=== PATIENT | male | born 1970 | race Caucasian/White ===

== ENCOUNTER → 2019-08-22 18:06 | Outpatient (CLI) | payer MEDICAID, SELFPAY ==
[2019-08-22 20:14] LABS: Amphetamine/Metha Screen,Urine Negative ng/mL (<1000); Barbiturates Screen,Urine Negative ng/mL (<200); Benzodiazepines Screen,Urine Negative ng/mL (<200); Cannabinoid Screen,Urine Negative ng/mL (<50); Cocaine Screen,Urine Negative ng/mL (<300); Methadone Screen,Urine Negative ng/mL (<300); Opiate Screen,Urine Negative ng/mL (<300); Phencyclidine Screen,Urine Negative ng/mL (<25)
== END ==
PROVIDERS: Visit Provider Nurse Practitioner Family
DX: R91.8 Other nonspecific abnormal finding of lung field (principal)
CPT/HCPCS: 80305

== ENCOUNTER 2022-05-14 06:37 | Emergency (ER) | payer MEDICAID, SELFPAY ==
--- NOTE | 2022-05-14 06:30 | ECG_ITS ---
APPROVED REPORT Exam: Resting ECG HR:76 bpm ECG Measurements Heart Rate 76 AXES MD 159 P 65 QRSd 96 QRS 44 QT 373 T 65 QTc 403 Conclusion SINUS RHYTHM NORMAL ECG UNCONFIRMED REPORT Electronically signed by : Jovi Serrano MD 05/14/2022 14:53:18
[2022-05-14 06:33] VITALS: BP 110/71; PULSE 80; RESP 17; TEMP 37.3; O2SAT 98; BMI 25.0
--- NOTE | 2022-05-14 06:43 | XR_ITS ---
FINAL REPORT CLINICAL HISTORY: chest pain, hx of TN with stents FINDINGS: PA and lateral views of the chest were obtained. There is no prior exam for comparison. The cardiac and mediastinal silhouettes are within normal limits. Emphysematous changes are present. Linear opacities in the right middle lobe and lower lobe favor atelectasis or scarring. There is blunting of the right costophrenic angle favored represent scarring. There is no pleural effusion or pneumothorax. No acute osseous abnormality is identified. IMPRESSION: Right middle and lower lobe opacities favoring atelectasis or scarring. Reviewed, Interpreted and Dictated by Nessa Denise MD Transcribed by Duane Stock Authenticated and [facility]
--- NOTE | 2022-05-14 06:45 | PC.NURSE ---
at BS speaking with pt
--- NOTE | 2022-05-14 06:45 | PC.NURSE ---
PT RECEIVED ASA 324 MG AND NITRO SL X 2 THAT RELIEVED HIS CHEST PAIN PRIOR TO ARRIVAL PER EMS.
[2022-05-14 06:50] LABS: Coronavirus 19, PCR Not Detected (NotDetected); Influenza A, PCR Not Detected (NotDetected); Influenza B, PCR Not Detected (NotDetected)
[2022-05-14 06:51] LABS: Basophils # 0.1 K/mm3 (0-0.2); Basophils % 1.2 % (0.1-2.0); Eosinophils # 0.1 K/mm3 (0.0-0.4); Eosinophils % 1.8 % (0.1-12.0); Lymphocytes # 0.8 K/mm3 (0.7-4.5); Mean Corpuscular HGB Conc 33.3 g/dL (31.8-35.4); Mean Corpuscular Hemoglobin 30.8 pg (27.0-31.2); Mean Corpuscular Volume 92.4 fl (80-94); Mean Platelet Volume 8.7 fl (7.4-10.4); Monocytes # 0.2 K/mm3 (0.1-1.0); Monocytes % 4.7 % (1.7-9.3); Neutrophils # 3.6 K/mm3 (1.8-7.8); Neutrophils % 75.4 % (37.0-80.0); Platelet Count 88 K/mm3 (142-424); Red Blood Count 4.22 M/mm3 (4.60-6.20); Red Cell Distribution Width 13.8 % (11.5-17.5); White Blood Count 4.8 K/mm3 (4.8-10.8)
--- NOTE | 2022-05-14 06:53 | HMH.EDGENADL ---
ED Disposition Clinical Impression: Palpitations, Hypomagnesemia, Cervical radicular pain Disposition: Home, Self-Care Condition on Discharge: Good Instructions: DI for Atypical Chest Pain, DI for Cervical Radiculopathy, DI for Palpitations Additional Instructions: You were evaluated in the emergency department today for palpitations. Please call your billing and accounting staff assistant and your primary care provider today and notify them that you are seen here for this. It is important to follow-up closely with them. Make sure you stay orally hydrated at home is much as possible. 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 Prescriptions: Naproxen Sodium [Naproxen ER 500mg Tab] 500 mg PO DAILY 5 Days #20 tab Transmission Status: Pending to [facility] Referrals: Provider,Referral, [Referring] - - Critical Care Critical Care Time: No Attestation: On 05/14/22, the high probability of a clinically significant, sudden or life threatening deterioration of the following system(s) required my full and direct attention, intervention and personal management. The time I documented below is in addition to time spent performing reported procedures but includes the following listed in this critical care notation. Medical Decision Making - Orion Inquiry Pt receiving controlled substance: No Vital Signs: 05/14/22 06:33 05/14/22 07:36 Temperature 99.1 F Temperature Source Oral Pulse Rate 63 Pulse Rate [Left Radial] 80 Respiratory Rate 17 14 Blood Pressure 109/60 L Blood Pressure [Right Arm] 110/71 Blood Pressure Mean 71 Blood Pressure Mean [Right Arm] 84 Blood Pressure Source [Right Arm] Automatic Cuff Blood Pressure Position [Right Arm] Standing 02 Sat by Pulse Oximetry 98 97 Oxygen Delivery Method Room Air - Lab Data Lab Results 05/14/22 06:36: WBC 4.8, RBC 4.22 L, Hgb 13.0 L, Hct 39.0 L, MCV 92.4, MCH 30.8, MCHC 33.3, RDW 13.8, Plt Count 88 L, MPV 8.7, Neut % (Auto) 75.4, Lymph % (Auto) 17.0, Burke % (Auto) 4.7, Eos % (Auto) 1.8, Baso % (Auto) 1.2, Neut # (Auto) 3.6, Lymph # (Auto) 0.8, Burke # (Auto) 0.2, Eos # (Auto) 0.1, Baso # (Auto) 0.1 05/14/22 06:36: Sodium 137, Potassium 3.5, Chloride 103, Carbon Dioxide 28, Anion Gap 9.5, BUN 8 L, Creatinine 0.70, Estimated Creat Clear 150, Estimated GFR 119, Est GFR ( Amer) 144, Glucose 162 H, Calcium 8.3 L, Total Bilirubin 0.7, Direct Bilirubin 0.5 H, Conjugated Bilirubin 0.0, Indirect Bilirubin 0.2, Unconjugated Bilirubin 0.3, AST 79 H, ALT 67, Alkaline Phosphatase 164 H, Troponin I < 0.01, Total Protein 6.8, Albumin 3.6 05/14/22 06:36: SARS-CoV-2 (PCR) Not detected, Influenza A Untype (PCR) Not detected, Influenza Type B (PCR) Not detected 05/14/22 06:36: Magnesium 1.4 L Result diagrams: 05/14/22 06:36 05/14/22 06:36 Orders (Tests/Meds): ED MEDICATIONS Generic Name Dose Route Start Last Admin Trade Name Freq PRN Reason Stop Dose Admin Lactated Ringer's 1,000 mls @ 999 mls/hr 05/14/22 07:00 05/14/22 06:54 Lactated Ringer's 1000 Ml Bag IV 05/14/22 08:00 999 mls/hr .Q1H1M ANH Administration Magnesium Sulfate 2 gm in 50 mls @ 50 mls/hr 05/14/22 07:15 05/14/22 07:21 Magnesium Sulfate 2gm/50ml Premix IV 05/14/22 08:14 50 mls/hr ONCE ONE Administration Naproxen 500 mg 05/14/22 09:00 Naproxen 500mg Tablet PO 06/13/22 08:59 BIDWMEAL ANH Discontinued Medications Generic Name Dose Route Start Last Admin Trade Name Freq PRN Reason Stop Dose Admin Gabapentin 300 mg 05/14/22 07:38 Gabapentin 300mg Capsule PO 05/14/22 07:39 ONCE ONE Nitroglycerin 1 gm 05/14/22 06:45 05/14/22 06:48 Nitroglycerin 1 Gm Ointment TD 05/14/22 06:46 1 gm ONCE ONE Administration Ondansetron HCl 4 mg 05/14/22 06:44 05/14/22 06:47 Ondansetron 4mg/2ml Vial IV 05/14/22 06:45 4 mg ONCE ONE Administration ORDERS Category Date Time Status Tropo
[2022-05-14 06:59] LABS: Alanine Aminotransferase 67 U/L (12-78); Albumin Level 3.6 g/dl (3.5-5.0); Alkaline Phosphatase 164 U/L (38-126); Anion Gap 9.5 mEq/L (5-15); Aspartate Amino Transferase 79 U/L (17-59); Bilirubin,Direct 0.5 mg/dl (0.0-0.4); Bilirubin,Indirect 0.2 mg/dL (0.0-0.9); Bilirubin,Total 0.7 mg/dl (0.2-1.3); Bilirubin,Unconjugated 0.3 mg/dL (0.0-1.1); Blood Urea Nitrogen 8 mg/dl (9-20); Calcium 8.3 mg/dl (8.4-10.2); Carbon Dioxide 28 mmol/L (22.0-30.0); Chloride 103 mmol/L (98-107); Creatinine Clearance Estimated 150 mL/min (50-200); Estimated Glomerular Filt Rate 119 ml/min (>60); GFR (African American) 144 ML/MIN (>60); Glucose 162 mg/dl (74-100); Potassium 3.5 mmoL/L (3.5-5.1); Sodium 137 mmol/L (136-145); Total Protein,Serum 6.8 g/dl (6.3-8.2)
[2022-05-14 07:00] LABS: Magnesium 1.4 mg/dl (1.6-2.3)
--- NOTE | 2022-05-14 07:05 | PC.NURSE ---
Pt gone to RAD
--- NOTE | 2022-05-14 07:07 | PC.NURSE ---
Pt back from RAD
[2022-05-14 07:14] LABS: Troponin I < 0.01 ng/ml (0.00-0.034)
[2022-05-14 07:36] VITALS: BP 109/60; PULSE 63; RESP 14; O2SAT 97
--- NOTE | 2022-05-14 07:45 | PC.NURSE ---
PT CONTINUES TO C/O RT ARM PAIN
[2022-05-14 08:06] VITALS: BP 103/60; PULSE 65; RESP 13; O2SAT 97
--- NOTE | 2022-05-14 08:07 | PC.NURSE ---
Pt trying to call sister for a ride home.
--- NOTE | 2022-05-14 08:26 | PC.NURSE ---
Pt states that he was able to get ahold of his sister. Waiting for her arrival so that pt can be D/C'd. Pt resting at this time.
--- NOTE | 2022-05-14 08:28 | PC.NURSE ---
Patient's sister called to notify us and patient that one of the patient's brothers is coming to get him.
[2022-05-14 08:36] VITALS: BP 103/66; PULSE 64; RESP 15; O2SAT 99
--- NOTE | 2022-05-14 08:59 | PC.NURSE ---
pt c/o rt side neck and rt arm pain
--- NOTE | 2022-05-14 09:05 | PC.NURSE ---
pt waiting brother to pick him up for discharge
[2022-05-14 09:06] VITALS: BP 117/68; PULSE 60; RESP 16; O2SAT 99
[2022-05-14 09:30] VITALS: BP 117/68; PULSE 66; PULSE 78; RESP 16; RESP 20; TEMP 36.6; TEMP 36.9; O2SAT 98; O2SAT 99
== END 2022-05-14 09:32 | disposition home or self-care (01) ==
PROVIDERS: Emergency Provider Emergency Medicine; PCP Nurse Practitioner Family
DX: M54.12 Radiculopathy, cervical region (principal); R10.11 Right upper quadrant pain; R00.2 Palpitations; R25.2 Cramp and spasm; E83.42 Hypomagnesemia; Z20.822 Contact with and (suspected) exposure to COVID-19; I10 Essential (primary) hypertension; I11.0 Hypertensive heart disease with heart failure; I25.10 Atherosclerotic heart disease of native coronary artery without angina pectoris; I49.9 Cardiac arrhythmia, unspecified; J44.9 Chronic obstructive pulmonary disease, unspecified; F17.210 Nicotine dependence, cigarettes, uncomplicated; Z79.02 Long term (current) use of antithrombotics/antiplatelets; Z79.51 Long term (current) use of inhaled steroids; Z79.82 Long term (current) use of aspirin; Z79.899 Other long term (current) drug therapy; Z95.5 Presence of coronary angioplasty implant and graft; Z83.3 Family history of diabetes mellitus; Z80.9 Family history of malignant neoplasm, unspecified
CPT/HCPCS: 71046; 80048; 80076; 83735; 84484; 85025; 93005; 96361; 96374; 96375; 96376; 99285; C9803; J2405; J3475; U0003; U0005

== ENCOUNTER 2024-11-23 17:10 | Emergency (ER) | payer MEDICAID, SELFPAY ==
--- NOTE | 2024-11-23 18:09 | XR_ITS ---
PROCEDURE INFORMATION: Exam: XR Chest Exam date and time: 11/23/2024 6:33 PM Age: 54 years old Clinical indication: Shortness of breath TECHNIQUE: Imaging protocol: Radiologic exam of the chest. Views: 2 views. COMPARISON: CR XR CHEST 2V 05/14/2022 6:55 AM FINDINGS: Lungs: Mild to moderate increased interstitial markings within the lower lung conroy probably representing pulmonary edema. Interstitial pneumonitis felt less likely. Pleural spaces: Small left pleural effusion. Heart/Mediastinum: Unremarkable. No cardiomegaly. Bones/joints: Unremarkable. IMPRESSION: Mild to moderate increased interstitial markings within the lower lung conroy probably representing pulmonary edema. Interstitial pneumonitis felt less likely.
[2024-11-23 18:10] VITALS: BP 130/76; PULSE 72; RESP 19; TEMP 36.8; O2SAT 98; BMI 32.3
[2024-11-23 18:18] LABS: Coronavirus 19, PCR Not Detected (NotDetected); Human Rhinovirus Not Detected (NotDetected); Influenza B, PCR Not Detected (NotDetected); Respiratory Syncytial Virus Not Detected (NotDetected)
--- NOTE | 2024-11-23 18:20 | EXP.UTC ---
Discharge Plan Disposition Patient Disposition: Home, Self-Care Condition: Good Prescriptions Prescriptions: New oseltamivir [Tamiflu] 75 mg capsule 75 mg PO BID 5 Days Qty: 10 0RF No Action aspirin 81 mg tablet,chewable 1 tab PO clopidogrel 75 mg tablet 75 mg PO atorvastatin 40 mg tablet 40 mg PO Anoro Ellipta 62.5-25 mcg/actuation blister with device 1 inh INHALATION DAILY Qty: 60 2RF albuterol sulfate [Ventolin HFA] 90 mcg/actuation HFA aerosol inhaler 1 puff INHALATION Q6H Qty: 6.7 0RF Rx Instructions: administer with spacer metoprolol succinate 25 mg tablet extended release 24 hr 12.5 mg PO lisinopril 20 mg tablet 20 mg PO DAILY Qty: 90 0RF escitalopram oxalate [Lexapro] 10 mg tablet 10 mg PO QDAY Qty: 14 0RF naproxen sodium 500 MG tablet, ER multiphase 24 hr 500 mg PO DAILY 5 Days Qty: 20 0RF Referrals Follow up/Referrals: Giovanny Escobar APRN [Primary Care Provider] - See instructions Ariel Cortes DO [Staff Physician] - See instructions Activity Restrictions/Add. Instructions Additional Instructions/Restrictions: Take tylenol for pain or fever. Continue the medications that were prescribed at [place], Take the tamiflu as directed that we prescribed here. Continue your lasix and your other medications that you are already prescribed. Follow up with your regular doctor. GO TO THE ER FOR ANY WORSENING SYMPTOMS Clinical Impressions Clinical Impression: Influenza A, At risk for fluid volume overload Instructions Patient Instructions: DI for Influenza -- Adult, Oseltamivir Print Language Print Language: Welsh Discharge ED Provider: Mikael Porter [facility] [place] [place] General Stated complaint: soa, wheezing, cough Mode of Arrival: Ambulatory Source of Information: Patient Limitations: No Limitations Time Seen by Provider: 11/23/24 18:19 Description of Symptoms (Recalled from Triage Doc. by RN): Reports coughing, shortness of breath and wheezing. HEENT Symptoms (Recalled from RN notes): Yes Resp Symptoms (Recalled from RN notes): Yes Skin Symptoms (Recalled from RN notes): No MS Symptoms (Recalled from RN notes): No Functional Status (Recalled from RN notes): wnl History of Present Illness Provider Complaint: He states that since yesterday he has had fever/chills/body aches/malaise. He has been exposed to influenza A. He went to [facility] ER last night and he states that he tested negative for influenza and covid-19. Related Data Home Medications ?Medication ?Instructions ?Recorded ?Confirmed aspirin 81 mg chewable tablet 1 tab PO 07/03/20 07/23/20 atorvastatin 40 mg tablet 40 mg PO 07/03/20 07/23/20 clopidogrel 75 mg tablet 75 mg PO 07/03/20 07/23/20 metoprolol succinate 25 mg 12.5 mg PO 07/23/20 07/23/20 tablet,extended release 24 hr Previous Rx's ?Medication ?Instructions ?Recorded lisinopril 20 mg tablet 20 mg PO DAILY #90 tabs 01/09/20 albuterol sulfate 90 mcg/actuation 1 puff inhalation Q6H #6.7 grams 07/03/20 aerosol inhaler (Ventolin HFA) umeclidinium 62.5 mcg-vilanterol 1 inh inhalation DAILY #60 ea 07/03/20 25 mcg/actuation powdr for inhalation (Anoro Ellipta) escitalopram oxalate 10 mg tablet 10 mg PO QDAY #14 tabs 07/24/20 (Lexapro) naproxen sodium 500 mg 500 mg PO DAILY 5 days #20 tabs 05/14/22 tablet,extended release 24 hr mphase oseltamivir 75 mg capsule (Tamiflu) 75 mg PO BID 5 days #10 caps 11/23/24 Allergies Allergy/AdvReac Type Severity Reaction Status Date / Time No Known Allergies Allergy Verified 07/23/20 14:21 Worker's Comp Is this a Worker's Comp case?: [facility] Disclaimer: The information contained in this section may have been updated after the patient was seen, as this information can be updated by other users. Social History Smoking Status: Current some day smoker tobacco type: cigarettes packs per day: 1 alcohol intake: never substance use type: denies use current occupational status: unemployed Travel in the last 8 weeks: None Have you lived/traveled outside [place] in past 30 days?: No Contact w/someone who lives/traveled outside US past 30 days?: No Exposure to someone with infectious disease in past 14 days?: No Do you have a fever (greater than 100.4 F or 38 C)?: No Have you tested positive for COVID-19: No Exposed to someone with COVID-19 in past 14 days?: No Do you have a sore throat?: No Do you have a cough?: Yes Do you have any weakness?: No Do you have any diarrhea?: No Are you experiencing any unusual bleeding?: No Do you have any muscle aches/pain?: No Do you have any abdominal pain?: No Are you experiencing loss of taste or smell?: No ROS Obtained: Yes All systems reviewed & no additional complaints except as documented Constitutional Constitutional: Reports chills and Reports fever(s) Eyes Eyes: Denies eye discharge ENT Ears, Nose, Mouth, and Throat: Reports as per HPI Cardiovascular Cardiovascular: Denies chest pain Respiratory Respiratory: Denies chest congestion and Reports cough Gastrointestinal Gastrointestingal: Reports nausea; Denies abdominal pain, constipation, cramping, diarrhea or vomiting Musculoskeletal Musculoskeletal: Denies arthralgias Integumentary/Breasts Skin/Breast: Denies rash Neurologic Neurologic: Denies paresthesias Physical Exam General General appearance: alert and in no apparent distress Head Head exam: atraumatic, normocephalic and normal inspection Eye Eye exam: Present normal appearance, PERRL and EOMI ENT ENT exam: Present mucous membranes moist and normal external ear exam Expanded ENT Exam TM/Canal exam: Bilateral TM: erythema and bulging Nose exam: Absent sinus tenderness Mouth exam: Present normal external inspection; Absent drooling Teeth exam: Present normal inspection Throat exam: Present tonsillar erythema, tonsillomegaly and tonsillar exudate Neck Neck exam: Present normal inspection, full ROM and trachea midline; Absent tenderness, meningismus or lymphadenopathy Chest Chest inspection: Present normal inspection and symmetric chest wall rise; Absent tenderness Respiratory Respiratory exam: Present normal lung sounds bilaterally; Absent respiratory distress, wheezes, stridor or accessory muscle use Cardiovascular Cardiovascular exam: Present regular rate and normal rhythm; Absent systolic murmur or diastolic murmur Abdominal Exam Abdominal exam: Present soft and normal bowel sounds; Absent distention, tenderness, guarding, rebound or rigidity Extremities Exam Extremities exam: Present normal inspection and normal capillary refill; Absent calf tenderness Back Exam Back exam: Present normal inspection and full ROM; Absent tenderness, CVA tenderness (R) or CVA tenderness (L) Neurological Exam Neurological exam: Present alert, oriented X3 and CN II-XII intact Psychiatric Psychiatric exam: Present normal affect and normal mood Skin Skin exam: Present warm, dry, intact and normal color Medical Decision Making Medical Records Medical records reviewed: No I reviewed the patient's medical records. Screening: Per USPSTF and CDC recommendations, given the prevalence of disease in our region, it is our hospital?s policy to screen for HIV and viral Hepatitis for all patients aged 18 and over and those with ongoing risk factors. Orion Inquiry Pt receiving controlled substance: No Vital Signs: 11/23/24 18:10 Temperature 98.3 F Temperature Source Oral Pulse Rate [Radial] 72 Respiratory Rate 19 Blood Pressure [Right Arm] 130/76 Blood Pressure Mean [Right Arm] 94 Blood Pressure Source [Right Arm] Automatic Cuff Blood Pressure Position [Right Arm] Sitting 02 Sat by Pulse Oximetry 98 Oxygen Delivery Method Room Air Lab Data Lab results reviewed: Yes I reviewed the patient's lab results. Orders (Tests/Meds): ORDERS Category Date Time Status CXR 2 view (NOT portable) [XR chest 2V] Stat Exams 11/23/24 18:09 Ordered Mini Respiratory Panel Stat Lab 11/23/24 18:12 Received
[2024-11-23] MEDS: IPRATROPIUM/ALBUTEROL 3 ML NEB IH (18:41)
[2024-11-23] MEDS: POTASSIUM CHLORIDE 20MEQ TAB 20 MEQ PO (19:21)
[2024-11-23] MEDS: FUROSEMIDE 40 MG TABLET PO (19:22)
[2024-11-23] MEDS: OSELTAMIVIR 75MG CAPSULE 75 MG PO (19:23)
[2024-11-23 19:46] VITALS: BP 130/76; PULSE 72; RESP 19; TEMP 36.8; O2SAT 98
[2024-11-24 01:09] LABS: Influenza A, PCR Detected (NotDetected)
== END 2024-11-23 19:48 | disposition home or self-care (01) ==
PROVIDERS: Emergency Provider Nurse Practitioner Family; PCP Nurse Practitioner Family
DX: J09.X2 Influenza due to identified novel influenza A virus with other respiratory manifestations (principal)
CPT/HCPCS: 71046; 87631; 99212; G0381; J7620

== ENCOUNTER 2024-11-24 09:35 | Inpatient (IN) | payer MEDICAID, SELFPAY ==
[2024-11-24] VITALS (17 sets, daily range): BP systolic 119–175; BP diastolic 67–91; PULSE 70–83; RESP 15–22; TEMP 36.7–37.6; O2SAT 92–96; BMI 29.8; BMI 29.9
--- NOTE | 2024-11-24 09:39 | ECG_ITS ---
APPROVED REPORT Exam: Resting ECG HR:73 bpm ECG Measurements Heart Rate 73 AXES IL 137 P 57 QRSd 106 QRS 20 QT 382 T 71 QTc 408 Conclusion SINUS RHYTHM POSSIBLE LATERAL MYOCARDIAL INFARCTION , OF INDETERMINATE AGE [30 ms Q WAVE IN I/aVL/V5/V6] ABNORMAL ECG Electronically signed by : RITO HIGH, 11/25/2024 08:12:23
--- NOTE | 2024-11-24 09:39 | XR_ITS ---
PROCEDURE INFORMATION: Exam: XR Chest Exam date and time: 11/24/2024 9:40 AM Age: 54 years old Clinical indication: Cough and shortness of breath; Additional info: Cough SOA TECHNIQUE: Imaging protocol: Radiologic exam of the chest. Views: 2 views. COMPARISON: CR XR CHEST 2V 11/23/2024 6:33 PM FINDINGS: Lungs: Heterogeneous opacities in the right mid and lower lungs have mildly progressed from the comparison. Pleural spaces: Small bilateral pleural effusions. No pneumothorax. Heart/Mediastinum: Cardiomediastinal silhouette is unchanged. Bones/joints: Unremarkable. IMPRESSION: 1. Small bilateral pleural effusions. 2. Heterogeneous opacities in the right mid and lower lungs have mildly progressed from the comparison. Subtle nodules peripheral left mid lung. These are concerning for infectious (including atypical) versus inflammatory etiology. Recommend imaging follow-up to resolution.
--- NOTE | 2024-11-24 09:40 | PC.NURSE ---
dr adorno at bedside
--- NOTE | 2024-11-24 09:45 | HMH.EDGENADL ---
Discharge Plan Disposition Patient Disposition: Admitted Prescriptions Prescriptions: No Action aspirin 81 mg tablet,chewable 1 tab PO DAILY clopidogrel 75 mg tablet 75 mg PO DAILY atorvastatin 40 mg tablet 40 mg PO DAILY Anoro Ellipta 62.5-25 mcg/actuation blister with device 1 inh INHALATION DAILY Qty: 60 2RF albuterol sulfate [Ventolin HFA] 90 mcg/actuation HFA aerosol inhaler 1 puff INHALATION Q6H Qty: 6.7 0RF Rx Instructions: administer with spacer metoprolol succinate 25 mg tablet extended release 24 hr 12.5 mg PO BID lisinopril 20 mg tablet 20 mg PO DAILY Qty: 90 0RF escitalopram oxalate [Lexapro] 10 mg tablet 10 mg PO QDAY Qty: 14 0RF naproxen sodium 500 MG tablet, ER multiphase 24 hr 500 mg PO DAILY 5 Days Qty: 20 0RF oseltamivir [Tamiflu] 75 mg capsule 75 mg PO BID 5 Days Qty: 10 0RF Referrals Follow up/Referrals: Evelyn Alcantara APRN [Primary Care Provider] - See instructions Clinical Impressions Clinical Impression: Influenza A, Pneumonia, Pleural effusion Print Language Print Language: Portuguese Discharge ED Provider: Serafin Nova General Adult HPI General Chief complaint: Shortness of Breath/Dyspnea Stated complaint: SOA Time Seen by Provider: 11/24/24 09:38 History of Present Illness HPI narrative: 54-year-old male with history of previous DC who is on daily diuretics, also has history of hypertension, presents to the ER with family for concerns of shortness of breath. Patient was seen in [email or web address] yesterday for the same complaints. I reviewed chest x-ray which commented on possible pulmonary edema versus pneumonitis. Review of [facility] [email or web address]] encounter demonstrates patient presented with fevers, chills, body aches, Generalized malaise. Family reports patient received Lasix, potassium, nebulizer treatment in the [facility] [[email or web address]] yesterday. Patient was prescribed Tamiflu after testing positive for influenza yesterday despite testing negative for influenza the day before at outside facility ER. Family reports they brought the patient back to the ER because they were instructed to bring him back if he was not feeling better. Patient still has the same symptoms as yesterday and is not feeling better so he came to the ER. Patient reportedly has been compliant with all medications at home. No new symptoms today. No documented fevers at home. Family reports everyone in the house has flu right now. Patient is on Tamiflu. No headache, dizziness, numbness, tingling, weakness, abdominal pain, vomiting, diarrhea, or other complaints. Related Data Home Medications ?Medication ?Instructions ?Recorded ?Confirmed aspirin 81 mg chewable tablet 81 mg PO DAILY 07/03/20 11/24/24 clopidogrel 75 mg tablet 75 mg PO DAILY 07/03/20 11/24/24 buprenorphine 8 mg-naloxone 2 mg 1 tab sublingual DAILY 11/24/24 11/24/24 sublingual tablet doxycycline hyclate 100 mg capsule 100 mg PO BID 11/24/24 11/24/24 fluoxetine 20 mg capsule 20 mg PO DAILY 11/24/24 11/24/24 furosemide 80 mg tablet 80 mg PO DAILY 11/24/24 11/24/24 prednisone 20 mg tablet 60 mg PO DAILY 11/24/24 11/24/24 spironolactone 100 mg tablet 100 mg PO BID 11/24/24 11/24/24 trazodone 100 mg tablet 100 mg PO HS 11/24/24 11/24/24 Previous Rx's ?Medication ?Instructions ?Recorded oseltamivir 75 mg capsule (Tamiflu) 75 mg PO BID 5 days #10 caps 11/23/24 Allergies Allergy/AdvReac Type Severity Reaction Status Date / Time No Known Allergies Allergy Verified 07/23/20 14:21 [facility] Disclaimer: The information contained in this section may have been updated after the patient was seen, as this information can be updated by other users. Social History Smoking Status: Current every day smoker tobacco type: cigarettes packs per day: 1 alcohol intake: never substance use type: denies use current occupational status: unemployed Travel in the last 8 weeks: None Have you lived/traveled outside [place] in past 30 days?: No Contact w/someone who lives/traveled outside US past 30 days?: No Exposure to someone with infectious disease in past 14 days?: No Do you have a fever (greater than 100.4 F or 38 C)?: No Have you tested positive for COVID-19: No Exposed to someone with COVID-19 in past 14 days?: No Do you have a sore throat?: No Do you have a cough?: No Do you have any weakness?: No Do you have any diarrhea?: No Are you experiencing any unusual bleeding?: No Do you have any muscle aches/pain?: No Do you have any abdominal pain?: No Are you experiencing loss of taste or smell?: No Other Medical History Have you received the Flu Vaccine for this season: No Have you received the Pneumonia Vaccine: No ROS Obtained: Yes Systems reviewed as appropriate & no additional complaints except as documented Physical Exam General General appearance: alert and in no apparent distress Head Head exam: atraumatic and normocephalic Eye Eye exam: Present PERRL and EOMI ENT ENT exam: Present mucous membranes moist Neck Neck exam: Present normal inspection and full ROM Chest Chest inspection: Present symmetric chest wall rise Respiratory Respiratory exam: Present other (Coarse breath sounds, no accessory muscle use, patient has right lower lobe rhonchi/rales, 94 to 95% on room air on arrival); Absent respiratory distress or stridor Cardiovascular Cardiovascular exam: Present regular rate and normal rhythm Abdominal Exam Abdominal exam: Present soft; Absent distention or tenderness Extremities Exam Extremities exam: Present full ROM; Absent edema Neurological Exam Neurological exam: Present alert, oriented X3 and normal gait; Absent motor sensory deficit Psychiatric Psychiatric exam: Present normal affect and normal mood Skin Skin exam: Present warm and dry Medical Decision Making Medical Records Medical records reviewed: Yes I reviewed the patient's medical records. Screening: Per USPSTF and CDC recommendations, given the prevalence of disease in our region, it is our hospital?s policy to screen for HIV and viral Hepatitis for all patients aged 18 and over and those with ongoing risk factors. MR Comment: See HPI [place] Inquiry Pt receiving controlled substance: No Vital Signs: 11/24/24 09:36 11/24/24 09:45 11/24/24 10:00 Temperature 98.9 F Temperature Source Oral Pulse Rate 72 72 Pulse Rate [Right Radial] 75 Respiratory Rate 20 22 Blood Pressure 135/73 137/73 Blood Pressure [Right Arm] 135/73 Blood Pressure Mean [Right Arm] 93 02 Sat by Pulse Oximetry 95 96 93 L Oxygen Delivery Method Room Air Room Air Room Air 11/24/24 10:15 11/24/24 10:35 11/24/24 11:00 Temperature Temperature Source Pulse Rate 72 73 75 Pulse Rate [Right Radial] Respiratory Rate 20 21 15 Blood Pressure 128/67 130/81 Blood Pressure [Right Arm] Blood Pressure Mean [Right Arm] 02 Sat by Pulse Oximetry 93 L 95 95 Oxygen Delivery Method Room Air 11/24/24 11:15 Temperature Temperature Source Pulse Rate 70 Pulse Rate [Right Radial] Respiratory Rate 20 Blood Pressure Blood Pressure [Right Arm] Blood Pressure Mean [Right Arm] 02 Sat by Pulse Oximetry 94 L Oxygen Delivery Method Lab Data Lab Results 11/24/24 09:46: WBC 5.4, RBC 4.67, Hgb 14.1, Hct 41.7 L, MCV 89.3, MCH 30.2, MCHC 33.8, RDW 13.7, Plt Count 119 L, MPV 11.7 H, Neut % (Auto) 78.7, Lymph % (Auto) 12.9, [place] % (Auto) 7.6, Eos % (Auto) 0.2, Baso % (Auto) 0.2, Neut # (Auto) 4.3, Lymph # (Auto) 0.7, [place] # (Auto) 0.4, Eos # (Auto) 0.0, Baso # (Auto) 0.0, Sodium 136, Potassium 3.3 L, Chloride 97 L, Carbon Dioxide 30, Anion Gap 12.3, BUN 10, Creatinine 0.70, Estimated Creat Clear 172, Estimated GFR 118, Est GFR ( Amer) 143, Glucose 89, Calcium 7.7 L, Total Bilirubin 1.2, AST 49, ALT 24, Alkaline Phosphatase 211 H, Troponin I < 0.01, NT-Pro-B Natriuret Pep 286 H, Total Protein 6.4, Albumin 3.3 L, Globulin 3.1, Albumin/Globulin Ratio 1.1 11/24/24 09:48: D-Dimer 3.72 H, Magnesium 1.3 L 11/24/24 09:46 11/24/24 09:46 Orders (Tests/Meds): ED MEDICATIONS Generic Name Dose Route Start Last Admin Trade Name Freq PRN Reason Stop Dose Admin Ceftriaxone Sodium 1 gm/ 50 mls @ 100 mls/hr 11/24/24 11:30 Sodium Chloride IV 12/04/24 11:29 Q24H ANH Vancomycin HCl 2,000 mg/ 250 mls @ 125 mls/hr 11/24/24 12:00 Sodium Chloride IV 11/24/24 13:59 ONCE ONE Sodium Chloride 10 ml 11/24/24 10:29 11/24/24 10:33 Sodium Chloride 0.9% 10ml Syr (Rad Only) IV 12/24/24 10:28 10 ml NEEDED PRN Administration Maintain IV Site Discontinued Medications Generic Name Dose Route Start Last Admin Trade Name Freq PRN Reason Stop Dose Admin Furosemide 40 mg 11/24/24 11:30 Furosemide 40mg/4ml Vial IV 11/24/24 11:31 ONCE ONE Iopamidol 70 ml 11/24/24 10:29 11/24/24 10:33 Iopamidol-370 (76%);100ml Bottle IV 11/24/24 10:30 70 ml ONCE ONE Administration Miscellaneous 1 each 11/24/24 11:30 Vancomycin Consult Request NOTAPPLIC 12/24/24 11:29 [facility] Sodium Chloride 50 ml 11/24/24 10:29 11/24/24 10:33 0.9 % Sodium Chloride 50 Ml Vial IV 11/24/24 10:30 50 ml ONCE ONE Administration ORDERS Category Date Time Status CT angio chest PE protocol Stat Cat Scan 11/24/24 10:20 Completed CXR 2 view (NOT portable) [XR chest 2V] Stat Exams 11/24/24 09:39 Completed BNP [NT Pro Brain Natriuretic Pep.] Stat Lab 11/24/24 09:46 Completed CBC w/Auto Diff [Complete Blood Count Auto Diff] Stat Lab 11/24/24 09:46 Completed CMP [Comprehensive Metabolic Panel] Stat Lab 11/24/24 09:46 Completed D-Dimer Stat Lab 11/24/24 09:48 Completed Magnesium Stat Lab 11/24/24 09:48 Completed Trop I [Troponin I] Stat Lab 11/24/24 09:46 Completed Troponin I Q3H Lab 11/24/24 12:45 Ordered Troponin I Q3H Lab 11/24/24 15:45 Ordered Blood Culture Stat Micro 11/24/24 11:30 Ordered HEART Score History (anamnesis): Slightly suspicious ECG: Non-specific disturbance Age: 45-65 years Risk factors: Atherosclerosis history Troponin: </= normal limit HEART Score: 4 Medical Decision Narrative: In summary, this 54-year-old male with comorbidities described in the HPI presents to the emergency department today with generalized malaise, shortness of breath, Persistent symptoms with which she presented to [facility] [[email or web address]] yesterday. On initial evaluation patient is hemodynamically stable, afebrile, saturating 94 to 95% on room air with no respiratory distress, good air movement throughout, trace rhonchi/Rales in the right lower lobe, no wheezing, no prolonged expiratory phase, no accessory muscle use, no peripheral edema, cardiac exam benign. Differential diagnosis includes but is not limited to ACS, PE, fluid overload, pneumonia, pleural effusion, electrolyte abnormality, persistent influenza symptoms. Based on these concerns, I ordered serum labs, cardiac workup, chest x-ray. ECG personally interpreted demonstrates normal sinus rhythm, rate 73, normal axis, normal NV and QTc, no STEMI. No medications were initially administered in the ER. Labs personally reviewed demonstrate no leukocytosis or anemia, platelets normal, CMP with mild hypokalemia, patient receiving oral repletion. proBNP elevated at 286, initial troponin undetectably low less than 0.01 reassuring against cardiac etiology, patient's D-dimer is significantly elevated at 3.72, CTA PE added to workup XR personally interpreted demonstrates right lung infiltrate that appears to be worsening, small pleural effusion, see radiology read for final interpretation. CT imaging personally interpreted demonstrate infiltrate in the right middle and lower lobe, no PE, pleural effusion worse on the left. See radiology read for final interpretation. Patient has reportedly been on doxycycline for approximately 48 hours. He is showing signs of worsening on imaging as well as clinically therefore I believe he requires IV antibiotics and inpatient admission. He also became briefly hypoxic on room air when transferring from the wheelchair to the bed after radiology studies. Patient is receiving vancomycin, Rocephin for treatment of pneumonia, he is also receiving IV Lasix for evidence of fluid overload on imaging and persistently elevated BNP. Patient and family are amenable to the idea of admission since he is having significant difficulty ambulating at home secondary to shortness of breath. I discussed this case with Dr. Carpio. He believes patient will not likely require prolonged stay since this is the anticipated course of influenza, however understands that patient's clinical status has persistently worsened despite being on appropriate medications. Patient was accepted for admission and admitted in stable condition. Critical Care Critical Care Time Critical Care Time: No
--- NOTE | 2024-11-24 09:49 | PC.NURSE ---
PT TO RADIOLOGY
[2024-11-24 10:01] LABS: Basophils % 0.2 % (0.1-2.0); Eosinophils % 0.2 % (0.1-12.0); Hematocrit 41.7 % (42.0-52.0); Hemoglobin 14.1 g/dL (14.1-18.0); Lymphocytes # 0.7 K/mm3 (0.7-4.5); Lymphocytes % 12.9 % (10-50); Mean Corpuscular HGB Conc 33.8 g/dL (31.8-35.4); Mean Corpuscular Hemoglobin 30.2 pg (27.0-31.2); Mean Corpuscular Volume 89.3 fl (80-94); Mean Platelet Volume 11.7 fl (7.4-10.4); Monocytes # 0.4 K/mm3 (0.1-1.0); Monocytes % 7.6 % (1.7-9.3); Neutrophils # 4.3 K/mm3 (1.8-7.8); Neutrophils % 78.7 % (37.0-80.0); Platelet Count 119 K/mm3 (142-424); Red Blood Count 4.67 M/mm3 (4.60-6.20); Red Cell Distribution Width 13.7 % (11.5-17.5); White Blood Count 5.4 K/mm3 (4.8-10.8)
[2024-11-24 10:05] LABS: Magnesium 1.3 mg/dl (1.6-2.3)
[2024-11-24 10:06] LABS: Alanine Aminotransferase 24 U/L (12-78); Albumin Level 3.3 g/dl (3.5-5.0); Albumin/Globulin Ratio 1.1 (1.1-1.8); Alkaline Phosphatase 211 U/L (38-126); Anion Gap 12.3 mEq/L (5-15); Aspartate Amino Transferase 49 U/L (17-59); Bilirubin,Total 1.2 mg/dl (0.2-1.3); Blood Urea Nitrogen 10 mg/dl (9-20); Calcium 7.7 mg/dl (8.4-10.2); Carbon Dioxide 30 mmol/L (22.0-30.0); Chloride 97 mmol/L (98-107); Creatinine Clearance Estimated 172 mL/min (50-200); Estimated Glomerular Filt Rate 118 ml/min (>60); GFR (African American) 143 ML/MIN (>60); Globulin 3.1 g/dL (1.3-3.2); Glucose 89 mg/dl (74-100); Potassium 3.3 mmoL/L (3.5-5.1); Sodium 136 mmol/L (136-145); Total Protein,Serum 6.4 g/dl (6.3-8.2)
[2024-11-24 10:10] LABS: D-Dimer 3.72 ug/mL (0.0-0.5)
[2024-11-24 10:18] LABS: NT Pro Brain Natriuretic Pep. 286 pg/mL (0-125)
[2024-11-24 10:19] LABS: Troponin I < 0.01 ng/ml (0.00-0.034)
--- NOTE | 2024-11-24 10:20 | CT_ITS ---
PROCEDURE INFORMATION: Exam: CTA Chest With Contrast Exam date and time: 11/24/2024 10:30 AM Age: 54 years old Clinical indication: Shortness of breath; Additional info: SOA dimer+ TECHNIQUE: Imaging protocol: Computed tomographic angiography of the chest with contrast. Exam focused on the arteries. 3D rendering (Not supervised by radiologist): MIP and/or 3D reconstructed images were created by the technologist. Radiation optimization: All CT scans at this facility use at least one of these dose optimization techniques: automated exposure control; mA and/or kV adjustment per patient size (includes targeted exams where dose is matched to clinical indication); or iterative reconstruction. Contrast material: ISOVUE; Contrast volume: 70 ml; Contrast route: INTRAVENOUS (IV); COMPARISON: CR XR CHEST 2V 11/24/2024 9:40 AM FINDINGS: Pulmonary arteries: No filling defects suspicious for pulmonary emboli are identified. Aorta: Unremarkable. No aortic aneurysm. No aortic dissection. Lungs: Scattered patchy airspace and ground-glass opacities are present predominantly in the posterior right mid lung, less prominently scattered in the right upper and bilateral lower lungs (right greater than left). Few scattered calcified granulomas in the bilateral lungs. Pleural spaces: Small-moderate left pleural effusion with mild overlying passive atelectasis. No pneumothorax. Trace right pleural effusion. Heart: Normal heart size. No pericardial fluid. Moderate coronary vessel atherosclerosis, status post possible LAD stent. Lymph nodes: Several mildly prominent paratracheal, AP window, prevascular, precarinal, subcarinal, and bilateral hilar lymph nodes are present, some of which are calcified, consistent with granulomatous infection. Liver: Liver is partially imaged. A tips shunt is present. Subtle lobular contour, appears mildly shrunken. No focal lesion. Spleen: Splenomegaly. Punctate calcified granulomas in the spleen. Intraperitoneal space: Small volume ascites. Bones/joints: Vertebral body hemangioma in T5. No acute osseous or soft tissue abnormality. Soft tissues: See Bones/joints finding. Other findings: Evaluation limited by respiratory motion. IMPRESSION: 1. No filling defects suspicious for pulmonary emboli are identified. 2. Scattered patchy airspace and ground-glass opacities are present predominantly in the posterior right mid lung, less prominently scattered in the right upper and bilateral lower lungs (right greater than left). Concerning for infectious (including atypical) versus inflammatory etiology. Recommend imaging follow-up to resolution. 3. Few calcified granulomas scattered in the lungs. 4. Partially calcified mediastinal and hilar lungs, in keeping with granulomatous infection. 5. Cirrhotic morphology of the liver with apparent stigmata of portal hypertension including ascites, splenomegaly, tips shunt.
--- NOTE | 2024-11-24 10:26 | PC.NURSE ---
rounded on patient
[2024-11-24] MEDS: 0.9 % SODIUM CHLORIDE 50 ML VIAL IV (10:33)
[2024-11-24] MEDS: IOPAMIDOL-370 (76%);100ML BOTTLE 70 ML IV (10:33)
[2024-11-24] MEDS: SODIUM CHLORIDE 0.9% 10ML SYR (RAD ONLY) 10 ML IV (10:33)
--- NOTE | 2024-11-24 11:34 | PC.NURSE ---
DR LAMAS AT BEDSIDE TO UPDATE PT AND FAMILY
--- NOTE | 2024-11-24 11:43 | PC.NURSE ---
DR LAMAS SPEAKING WITH DR JJ FOR ADMISSION
--- NOTE | 2024-11-24 11:46 | PC.NURSE ---
DIETARY NOTIFIED AT THIS TIME FOR LUNCH TRAY
--- NOTE | 2024-11-24 11:48 | PC.NURSE ---
LIBRARY SCIENCE INSTRUCTOR NOTIFIED OF ADMISSION
[2024-11-24] MEDS: FUROSEMIDE 40MG/4ML VIAL 40 MG IV (11:53)
[2024-11-24] MEDS: CEFTRIAXONE 1 GM 1 GM in 0.9 % SODIUM CHLORIDE 50 ML IV (11:53)
[2024-11-24] MEDS: POTASSIUM CHLORIDE 20MEQ TAB 20 MEQ PO (11:53)
--- NOTE | 2024-11-24 11:53 | HMH.PHAINT1 ---
Pharmacy Intervention Comments: MEDICATION RECONCILIATION COMPLETED ON PATIENT USING EXTERNAL FILL HISTORY FROM PHARMACY AND NAHED REPORT. -BRYCE SERNA, [place]
--- NOTE | 2024-11-24 11:54 | PC.NURSE ---
LUNCH TRAY SET-UP FOR PT
--- NOTE | 2024-11-24 12:01 | PC.NURSE ---
called report to boby redding on 2nd floor and answered all questions
--- NOTE | 2024-11-24 12:08 | EXP.HP ---
History of Present Illness *Admission Date: 11/24/24 *Reason for visit:: Flu pneumonia; dyspnea *History of present illness: Mikael Pete is a 54 y.o. male with PMHx notable for decompensated hepatitis C cirrhosis, status post TIPS 2022, CAD status post PCI x 5 stents, umbilical hernia repair status post open repair in 12/2023, history of lung surgery? Who presented to the ER because of worsening shortness of breath and flu symptoms over the past 2 days. This is his third encounter with medical facility in the past 3 days. Was diagnosed yesterday with influenza. Started on Tamiflu and discharged home. Presents with report of dyspnea. O2 saturations above 90 at rest, desats to the high 80s with any movement. Chest imaging obtained showing patchy pneumonia in right lung on chest x-ray. CT shows worsening pleural effusion on left side with patchy airspace disease on right. White count is presently normal at 5.4. Given patient's significant risk factors, worsening symptoms, failure of outpatient management with doxycycline for 48 hours and Tamiflu for 24 hours, medicine was consulted for admission and further management. Upon arrival to the floor, patient is ill-appearing. Able to answer questions. Reports he used to be a drinker. Does not anymore. Previous IV drug use history. Confirms history of conditions as obtained per my review of patient's chart via [employer] from , he has extensive past medical history of substance use, hepatitis C, decompensated cirrhosis, TIPS, CAD with 5 stents, esophageal varices, use order on maintenance medication with buprenorphine, depression, history of portal vein thrombosis. Stable on room air and able to complete sentences on interview. Fatigued on exam and ill-appearing [facility] Disclaimer: The information contained in this section may have been updated after the patient was seen, as this information can be updated by other users. Medical History (Updated 11/24/24 @ 12:23 by Mikael Carpio MD) Opioid use disorder CAD (coronary artery disease), [place] coronary artery Decompensated cirrhosis related to hepatitis C virus (HCV) Cirrhosis HTN (hypertension) Surgical History (Updated 11/24/24 @ 13:08 by Elise Mary RN) History of lung surgery History of coronary artery stent placement History of transjugular intrahepatic portosystemic shunt Family History (Updated 11/24/24 @ 13:10 by Elise Mary RN) Other Family history of cirrhosis of liver Family history of diabetes mellitus type II Social History (Updated 11/24/24 @ 13:09 by Elise Mary RN) Smoking Status: Current every day smoker tobacco type: cigarettes packs per day: 1 alcohol intake: former substance use type: denies use current occupational status: unemployed Travel in the last 8 weeks: None Have you lived/traveled outside [place] in past 30 days?: No Contact w/someone who lives/traveled outside US past 30 days?: No Exposure to someone with infectious disease in past 14 days?: No Do you have a fever (greater than 100.4 F or 38 C)?: No Have you tested positive for COVID-19: No Exposed to someone with COVID-19 in past 14 days?: No Do you have a sore throat?: No Do you have a cough?: No Do you have any weakness?: No Do you have any diarrhea?: No Are you experiencing any unusual bleeding?: No Do you have any muscle aches/pain?: No Do you have any abdominal pain?: No Are you experiencing loss of taste or smell?: No Other Medical History Have you received the Flu Vaccine for this season: No Have you received the Pneumonia Vaccine: No Meds Home Medications and Allergies Home Medications ?Medication ?Instructions ?Recorded ?Confirmed ?Type clopidogrel 75 mg tablet 75 mg PO DAILY 07/03/20 11/24/24 History buprenorphine 8 mg-naloxone 2 mg 1 tab sublingual DAILY 11/24/24 11/24/24 History sublingual tablet doxycycline hyclate 100 mg capsule 100 mg PO BID 11/24/24 11/24/24 History furosemide 80 mg tablet 80 mg PO DAILY 11/24/24 11/24/24 History prednisone 20 mg tablet 60 mg PO DAILY 11/24/24 11/24/24 History spironolactone 100 mg tablet 100 mg PO BID 11/24/24 11/24/24 History New Prescriptions to Start Prescriptions: Allergies Allergy/AdvReac Type Severity Reaction Status Date / Time No Known Allergies Allergy Verified 07/23/20 14:21 Exam Data for Last 24 hours Vital signs and Labs for Last 24 Hours: Temp Pulse Resp BP Pulse Ox O2 Del Method 98.9 F 79 20 150/82 H 94 L Room Air 11/24/24 12:02 11/24/24 12:02 11/24/24 12:02 11/24/24 12:02 11/24/24 11:15 11/24/24 12:02 Laboratory Results - last 24 hr 11/24/24 09:46: WBC 5.4, RBC 4.67, Hgb 14.1, Hct 41.7 L, MCV 89.3, MCH 30.2, MCHC 33.8, RDW 13.7, Plt Count 119 L, MPV 11.7 H, Neut % (Auto) 78.7, Lymph % (Auto) 12.9, [place] % (Auto) 7.6, Eos % (Auto) 0.2, Baso % (Auto) 0.2, Neut # (Auto) 4.3, Lymph # (Auto) 0.7, [place] # (Auto) 0.4, Eos # (Auto) 0.0, Baso # (Auto) 0.0, Sodium 136, Potassium 3.3 L, Chloride 97 L, Carbon Dioxide 30, Anion Gap 12.3, BUN 10, Creatinine 0.70, Estimated Creat Clear 172, Estimated GFR 118, Est GFR ( Amer) 143, Glucose 89, Calcium 7.7 L, Total Bilirubin 1.2, AST 49, ALT 24, Alkaline Phosphatase 211 H, Troponin I < 0.01, NT-Pro-B Natriuret Pep 286 H, Total Protein 6.4, Albumin 3.3 L, Globulin 3.1, Albumin/Globulin Ratio 1.1 11/24/24 09:48: D-Dimer 3.72 H, Magnesium 1.3 L I & O for Last 24 hours: Intake & Output 11/21/24 11/22/24 11/23/24 11/24/24 23:59 23:59 23:59 23:59 Weight 99.79 kg Constitutional Constitutional: mild distress, average body habitus, chronically ill appearing and cooperative Comments: Chronically ill-appearing *Routine HEENT Exam Head: Present normocephalic Eye: Present EOMI and PERRL ENT: Present mucous membranes moist Comments: Edentulous *Routine Neck Exam Neck: Present supple; Absent lymphadenopathy *Routine Respiratory Exam Respiratory: Present rhonchi, wheezes, crackles (Right posterior lung field) and normal respiratory effort Comments: Rhonchorous cough *Routine Cardiovascular Exam Cardiovascular: Present RRR *Routine Abdominal Exam Abdominal: Present soft and normoactive bowel sounds; Absent tenderness, distended or rebound *Routine Rectal Exam Rectal:: deferred *Routine Genitalia Exam Genitalia:: deferred *Routine Extremities Exam Extremities: Absent cyanosis, clubbing or edema *Routine Skin Exam Skin: Present warm; Absent rash *Routine Neurological Exam Neurological: Present alert, oriented X3 and moving all extremities; Absent altered mental status or asterixis Assessment and Plan *Assessment and plan (1) Pneumonia: Status: Acute Category: Medical Code(s): J18.9 - Pneumonia, unspecified organism (2) Influenza A: Status: Acute Category: Medical Code(s): J10.1 - Influenza due to other identified influenza virus with other respiratory manifestations (3) Pleural effusion: Status: Acute Category: Medical Code(s): J90 - Pleural effusion, not elsewhere classified (4) Hypomagnesemia: Status: Acute Category: Medical Code(s): E83.42 - Hypomagnesemia (5) Decompensated cirrhosis related to hepatitis C virus (HCV): Status: Acute Category: Medical Code(s): B19.20 - Unspecified viral hepatitis C without hepatic coma; K74.69 - Other cirrhosis of liver (6) History of transjugular intrahepatic portosystemic shunt: Status: Acute Category: Surgical Code(s): Z98.890 - Other specified postprocedural states (7) CAD (coronary artery disease), [place] coronary artery: Status: Acute Category: Medical Code(s): I25.10 - Atherosclerotic heart disease of [place] coronary artery without angina pectoris (8) History of coronary artery stent placement: Status: Acute Category: Surgical Code(s): Z95.5 - Presence of coronary angioplasty implant and graft (9) Opioid use disorder: Status: Acute Category: Medical Code(s): F11.90 - Opioid use, unspecified, uncomplicated Plan 54-year-old male with significant past medical history of decompensated hepatitis C cirrhosis, status post TIPS, history of PCI x 5, opioid use disorder, hypertension, depression. Presents with worsening shortness of breath. Found to have worsening pneumonia and pleural effusion secondary to flu. Discussed case with ER physician, request admission for further management due to failure of outpatient treatment. I agreed to admit for further care. PSI/port score of 93, class IV risk due to pneumonia, age, male, liver disease, CHF history, pleural effusion on x-ray, necessitating inpatient management. Received Tamiflu and broad-spectrum antibiotics in the ER. Cultures pending. Problems addressed as follows: Multifocal pneumonia Influenza A Pleural effusion -Per my review of chest CT has patchy multifocal pneumonia on the right side, progressing moderately sized effusion on the left, positive for flu A on PCR from 11/23. -Patient desats with any exertion. Goal saturation greater 90%. Supplemental oxygen if needed. -Initiate Tamiflu 75 mg twice daily. Initiate broad-spectrum antibiotics with vancomycin and ceftriaxone IV due to risk for atypical pneumonia and MRSA in the setting of flu along with relative immunocompromisation in the setting of cirrhosis. -Will consider have a pulmonology evaluated patient on Tuesday to consider thoracentesis given size of effusion on left side and unclear etiology. -Initiate diuretics with Lasix 80 mg IV twice daily and continue home spironolactone 100 mg twice daily for effusion and elevated BNP of 286 -Reports history of lung surgery due to concern for malignancy versus infection. Reports it was an infection. Procedure performed at [facility]. Will attempt to obtain records CAD History of PCI with stents x 5 -Unclear history of CHF. Reports stenting 2 to 3 years ago at [facility] in [place]. Will attempt obtain records for echoes and procedural notes. -Continuing Plavix due to unclear history and history of TIPS thrombus. -Blood pressure slightly elevated at this time will consider additional blood pressure agent such as beta-carlos or RAMIREZ inhibitor pending response to diuretics. Decompensated hepatitis C cirrhosis History of TIPS -Reports last paracentesis in August. Does not appear to have significant fluid at this time on his belly. Will hold on paracentesis at this time. Low concern for SBP -Ammonia level pending, PT/INR pending. Thrombocytopenia, platelets above 100 however. -Child Cervantes class B. -Initiate lactulose twice daily to promote bowel movement and aid in maintaining clear mentation -Reported history of varices per chart review. No active signs of bleeding. Continue PPI with pantoprazole 40 mg Opiate use disorder: Reports history of Suboxone but does not take it regularly. Will hold at this time as he has not had a dose in 2 to 3 days and denies any withdrawal symptoms Anxiety: Reports he gets anxious when he is in the hospital. Requesting Ativan. Will administer 0.5 mg twice daily as needed. Monitor for toxicity given home Suboxone use Cardiac diet Full code
[2024-11-24 12:50] LABS: INR 1.17 (0.9-1.1); Prothrombin Time 12.7 seconds (9.2-12.1)
--- NOTE | 2024-11-24 12:58 | EXP.PHA.CONS ---
Pharmacy Consult Date: 11/24/24 Time: 12:58 Referring provider: DR. JJ Reason for Consult:: VANCOMYCIN DOSING Allergies Allergy/AdvReac Type Severity Reaction Status Date / Time No Known Allergies Allergy Verified 07/23/20 14:21 Home Medications ?Medication ?Instructions ?Recorded ?Confirmed ?Type aspirin 81 mg chewable tablet 81 mg PO DAILY 07/03/20 11/24/24 History clopidogrel 75 mg tablet 75 mg PO DAILY 07/03/20 11/24/24 History oseltamivir 75 mg capsule (Tamiflu) 75 mg PO BID 5 days #10 caps 11/23/24 11/24/24 Rx buprenorphine 8 mg-naloxone 2 mg 1 tab sublingual DAILY 11/24/24 11/24/24 History sublingual tablet doxycycline hyclate 100 mg capsule 100 mg PO BID 11/24/24 11/24/24 History fluoxetine 20 mg capsule 20 mg PO DAILY 11/24/24 11/24/24 History furosemide 80 mg tablet 80 mg PO DAILY 11/24/24 11/24/24 History prednisone 20 mg tablet 60 mg PO DAILY 11/24/24 11/24/24 History spironolactone 100 mg tablet 100 mg PO BID 11/24/24 11/24/24 History trazodone 100 mg tablet 100 mg PO HS 11/24/24 11/24/24 History New Prescriptions to Start Prescriptions: Height: 1.83 m Weight: 99.79 kg Laboratory Results:: Laboratory Results - last 24 hr 11/24/24 09:46: WBC 5.4, RBC 4.67, Hgb 14.1, Hct 41.7 L, MCV 89.3, MCH 30.2, MCHC 33.8, RDW 13.7, Plt Count 119 L, MPV 11.7 H, Neut % (Auto) 78.7, Lymph % (Auto) 12.9, [place] % (Auto) 7.6, Eos % (Auto) 0.2, Baso % (Auto) 0.2, Neut # (Auto) 4.3, Lymph # (Auto) 0.7, [place] # (Auto) 0.4, Eos # (Auto) 0.0, Baso # (Auto) 0.0, Sodium 136, Potassium 3.3 L, Chloride 97 L, Carbon Dioxide 30, Anion Gap 12.3, BUN 10, Creatinine 0.70, Estimated Creat Clear 172, Estimated GFR 118, Est GFR ( Amer) 143, Glucose 89, Calcium 7.7 L, Total Bilirubin 1.2, AST 49, ALT 24, Alkaline Phosphatase 211 H, Troponin I < 0.01, NT-Pro-B Natriuret Pep 286 H, Total Protein 6.4, Albumin 3.3 L, Globulin 3.1, Albumin/Globulin Ratio 1.1 11/24/24 09:48: D-Dimer 3.72 H, Magnesium 1.3 L Medical History: Medical History (Updated 11/24/24 @ 12:23 by Mikael Jj MD) Opioid use disorder CAD (coronary artery disease), [place] coronary artery Decompensated cirrhosis related to hepatitis C virus (HCV) Cirrhosis HTN (hypertension) Assessment and Plan Assessment and plan all Dx Assessment and Plan for all problems:: Pharmacokinetic dosing service Objective: Patient: Floor: Age: 54 yo Serum creatinine: 0.70 mg/dL Height: 72.0 Inches Weight (kg): 99.7 Assessment: IBW (kg): 77.60 Dosing wt(kg): 99.7 Estimated Creatinine clearance (ml/min): 130 Clearance limited to 130 ml/min to reduce risk of overdosing. CRCL method: Cockcroft and Gault using ibw(default). Drug selected: Vancomycin Loading dose (mg): Vd (liters): 79.8 (factor used: 0.8 L/kg) Justin (hr-1): 0.112 Half life (hrs): 6.19 CLvanco=?? 8.938 L/hr Recommended dose: 1750 mg Interval: 8 hrs Infusion time (hrs): 2.0 Predicted peak (mcg/mL): 33.2 Predicted trough (mcg/mL): 16.95 Total body weight is being used for vancomycin dosing. Recommendations: Give Vancomycin 1750 mg q 8 hrs with an expected Cpeak of 33.2 mcg/ml and an expected Ctrough of 16.95 mcg/ml AUC 0-24 /KENYATTA Data: KENYATTA 0.5 mcg/mL:?? AUC/KENYATTA:? 1174.8 KENYATTA 1.0 mcg/mL:?? AUC/KENYATTA:? 587.4 --------- KENYATTA 1.5 mcg/mL:?? AUC/KENYATTA:? 391.6 KENYATTA 2.0 mcg/mL:?? AUC/KENYATTA:? 293.7 Thank you for the consult, will continue to follow. -BRYCE SERNA, [place]
[2024-11-24 13:35] LABS: Troponin I < 0.01 ng/ml (0.00-0.034)
[2024-11-24] MEDS: MAGNESIUM SULFATE IN WATER 2 GM/50 ML PIGGYBACK IV ×2 (13:46→18:19)
[2024-11-24] MEDS: VANCOMYCIN HCL 2,000 MG in 0.9 % SODIUM CHLORIDE 250 ML 125 MG IV (13:47)
[2024-11-24] MEDS: IPRATROPIUM/ALBUTEROL 3 ML NEB IH ×3 (13:47→22:56)
[2024-11-24] MEDS: LORazepam 0.5MG TABLET 0.5 MG PO (14:35)
[2024-11-24] MEDS: OSELTAMIVIR 75MG CAPSULE 75 MG PO ×2 (14:35→21:16)
[2024-11-24] MEDS: FUROSEMIDE 100MG/10ML VIAL 80 MG IV (16:45)
[2024-11-24] MEDS: VANCOMYCIN/WATER FOR INJ (PEG) 1.75 GM/350 ML PIGGYBACK IV (21:15)
[2024-11-24] MEDS: SPIRONOLACTONE 25MG TABLET 100 MG PO (21:15)
[2024-11-24] MEDS: PANTOPRAZOLE 40MG TABLET 40 MG PO (21:16)
[2024-11-24] MEDS: LACTULOSE 20GM/30ML UDC 20 GM PO (21:17)
[2024-11-25] VITALS (9 sets, daily range): BP systolic 105–131; BP diastolic 55–72; PULSE 68–89; RESP 15–24; TEMP 36.8–37.4; O2SAT 90–94; BMI 29.4
[2024-11-25] MEDS: LORazepam 0.5MG TABLET 0.5 MG PO ×2 (02:07→13:47)
--- NOTE | 2024-11-25 03:30 | PC.NURSE ---
Pt O2 increased due to sats decreasing to 87-88%, Pt now on 3LNC and sating at 92%.
--- NOTE | 2024-11-25 05:23 | PC.NURSE ---
Pt is alert and oriented x4 and currently tolerating 3L and sating at 91%. Pt has rested well this shift. Pt did request ativan @ 0200 for anxiety. Pt lung sounds remain diminished with scattered wheezes. Pt denies pain.
[2024-11-25] MEDS: VANCOMYCIN/WATER FOR INJ (PEG) 1.75 GM/350 ML PIGGYBACK IV ×3 (05:43→21:24)
[2024-11-25] MEDS: IPRATROPIUM/ALBUTEROL 3 ML NEB IH ×4 (06:06→22:58)
--- NOTE | 2024-11-25 06:12 | PC.NURSE ---
Contacted Fartun Waggoner APRN and RT at this time, Pt c/o pain in lungs, Pt has wheezes throughout and fine crackles in bases. PT currently sating 88-89%. RT administered duo Caridad in room to assess pt. Pt lasix given early per [facility].
[2024-11-25] MEDS: FUROSEMIDE 100MG/10ML VIAL 80 MG IV ×2 (06:17→16:11)
--- NOTE | 2024-11-25 08:29 | EXP.ACUTE.PN ---
Subjective *Date: 11/25/24 *Time: 11:58 Interval history: Patient quite ill-appearing today. Denies any chest pain. Somewhat short of breath. Increased oxygen requirement while sleeping to 4 L. Tolerating 2 L at rest. Diuresing well, -4 L since admission. Tolerating p.o. intake. Having bowel movements. Medical Exam Vital signs and Labs for Last 24 Hours: Vital Signs Temp Pulse Pulse Resp BP BP Pulse Ox 11/25/24 08:00 98.2 F 89 16 117/55 L 94 L 11/25/24 07:00 11/25/24 06:07 73 11/25/24 06:07 74 11/25/24 06:07 90 L 11/25/24 05:00 11/25/24 04:00 98.4 F 71 17 130/72 91 L 11/25/24 03:00 11/25/24 01:00 11/25/24 00:00 98.3 F 72 20 105/70 L 92 L 11/24/24 23:39 75 11/24/24 23:39 71 11/24/24 23:00 11/24/24 21:00 11/24/24 20:00 94 L 11/24/24 20:00 98.1 F 78 18 123/70 94 L 11/24/24 19:09 77 11/24/24 19:08 73 11/24/24 19:00 11/24/24 17:00 11/24/24 16:00 99.7 F H 75 16 119/72 92 L 11/24/24 15:00 11/24/24 13:48 76 11/24/24 13:48 78 11/24/24 13:48 93 L 11/24/24 13:00 11/24/24 12:30 98.6 F 83 20 175/91 H 93 L 11/24/24 12:02 98.9 F 79 20 150/82 H 11/24/24 12:00 79 16 150/83 H 93 L 11/24/24 11:30 70 22 128/74 94 L 11/24/24 11:15 70 20 94 L 11/24/24 11:00 75 15 130/81 95 11/24/24 10:35 73 21 128/67 95 11/24/24 10:15 72 20 93 L 11/24/24 10:00 72 22 137/73 93 L 11/24/24 09:45 72 135/73 96 11/24/24 09:36 98.9 F 75 20 135/73 95 O2 Del Method O2 Flow Rate 11/25/24 08:00 Nasal Cannula 4 11/25/24 07:00 Nasal Cannula 4 11/25/24 06:07 11/25/24 06:07 11/25/24 06:07 Nasal Cannula 4 11/25/24 05:00 Nasal Cannula 3 11/25/24 04:00 Nasal Cannula 3 11/25/24 03:00 Nasal Cannula 2 11/25/24 01:00 Nasal Cannula 2 11/25/24 00:00 Nasal Cannula 2 11/24/24 23:39 11/24/24 23:39 11/24/24 23:00 Nasal Cannula 2 11/24/24 21:00 Nasal Cannula 2 11/24/24 20:00 Nasal Cannula 2 11/24/24 20:00 Nasal Cannula 2 11/24/24 19:09 11/24/24 19:08 11/24/24 19:00 Nasal Cannula 2 11/24/24 17:00 Nasal Cannula 2 11/24/24 16:00 Nasal Cannula 2 11/24/24 15:00 Nasal Cannula 2 11/24/24 13:48 11/24/24 13:48 11/24/24 13:48 Room Air 11/24/24 13:00 Room Air 11/24/24 12:30 Room Air 11/24/24 12:02 Room Air 11/24/24 12:00 Room Air 11/24/24 11:30 Room Air 11/24/24 11:15 11/24/24 11:00 11/24/24 10:35 Room Air 11/24/24 10:15 11/24/24 10:00 Room Air 11/24/24 09:45 Room Air 11/24/24 09:36 Room Air Intake and Output 11/24/24 11/25/24 11/25/24 23:59 07:59 15:59 Intake Total 120 / 480 360 / 360 Output Total 1949 1575 / 1875 300 / 1875 Balance -1830 / -2570 -1215 / -1515 -300 / -1515 Intake: Intake, Oral Amount 120 / 480 360 / 360 Output: Output, Urine Amount 1949 1575 / 1875 300 / 1875 Other: Number of Unmeasured Voids 0 0 Number of Bowel Movements 1 Weight 98.475 kg Patient Weight 11/25/24 23:59 Weight 98.475 kg Laboratory Results - last 24 hr 11/24/24 09:46: WBC 5.4, RBC 4.67, Hgb 14.1, Hct 41.7 L, MCV 89.3, MCH 30.2, MCHC 33.8, RDW 13.7, Plt Count 119 L, MPV 11.7 H, Neut % (Auto) 78.7, Lymph % (Auto) 12.9, Day % (Auto) 7.6, Eos % (Auto) 0.2, Baso % (Auto) 0.2, Neut # (Auto) 4.3, Lymph # (Auto) 0.7, Day # (Auto) 0.4, Eos # (Auto) 0.0, Baso # (Auto) 0.0, Sodium 136, Potassium 3.3 L, Chloride 97 L, Carbon Dioxide 30, Anion Gap 12.3, BUN 10, Creatinine 0.70, Estimated Creat Clear 172, Estimated GFR 118, Est GFR ( Amer) 143, Glucose 89, Calcium 7.7 L, Total Bilirubin 1.2, AST 49, ALT 24, Alkaline Phosphatase 211 H, Troponin I < 0.01, NT-Pro-B Natriuret Pep 286 H, Total Protein 6.4, Albumin 3.3 L, Globulin 3.1, Albumin/Globulin Ratio 1.1 11/24/24 09:48: D-Dimer 3.72 H, Magnesium 1.3 L 11/24/24 12:35: PT 12.7 H, INR 1.17 H, Troponin I < 0.01 I & O for Labs for Last 24 Hours: Intake & Output 11/22/24 11/23/24 11/24/24 11/25/24 23:59 23:59 23:59 23:59 Intake Total 120 / 480 360 / 360 Output Total 2900 / 3050 1875 / 1875 Balance -2780 / -2570 -1515 / -1515 Weight 99.79 kg 98.475 kg Constitutional: Present mild distress, average body habitus, chronically ill appearing, disheveled and cooperative Head: Present atraumatic and normocephalic ENT: Present normal exam Neck: Present normal inspection Respiratory: Present wheezes, crackles, diminished air movement (Specifically on left side) and normal respiratory effort; Absent rhonchi Cardiac: Present Reg Rate and Rhythm GI: Present soft, distention and normal bowel sounds; Absent tenderness Extremities: Present normal inspection and full ROM Skin: Present intact; Absent erythema Neuro: Present Grossly Intact, alert, awake, oriented x 3 and moves all extremities Comment:: Slow to respond to questions but oriented Assessment and Plan *Assessment and plan (1) Pneumonia: Status: Acute Category: Medical Code(s): J18.9 - Pneumonia, unspecified organism (2) Influenza A: Status: Acute Category: Medical Code(s): J10.1 - Influenza due to other identified influenza virus with other respiratory manifestations (3) Pleural effusion: Status: Acute Category: Medical Code(s): J90 - Pleural effusion, not elsewhere classified (4) Hypomagnesemia: Status: Acute Category: Medical Code(s): E83.42 - Hypomagnesemia (5) Decompensated cirrhosis related to hepatitis C virus (HCV): Status: Acute Category: Medical Code(s): B19.20 - Unspecified viral hepatitis C without hepatic coma; K74.69 - Other cirrhosis of liver (6) History of transjugular intrahepatic portosystemic shunt: Status: Acute Category: Surgical Code(s): Z98.890 - Other specified postprocedural states (7) CAD (coronary artery disease), [place] coronary artery: Status: Acute Category: Medical Code(s): I25.10 - Atherosclerotic heart disease of [place] coronary artery without angina pectoris (8) History of coronary artery stent placement: Status: Acute Category: Surgical Code(s): Z95.5 - Presence of coronary angioplasty implant and graft (9) Opioid use disorder: Status: Acute Category: Medical Code(s): F11.90 - Opioid use, unspecified, uncomplicated Plan 54-year-old male with significant past medical history of decompensated hepatitis C cirrhosis, status post TIPS, history of PCI x 5, opioid use disorder, hypertension, depression. Presents with worsening shortness of breath. Found to have worsening pneumonia and pleural effusion secondary to flu. Discussed case with ER physician, request admission for further management due to failure of outpatient treatment. I agreed to admit for further care. PSI/port score of 93, class IV risk due to pneumonia, age, male, liver disease, CHF history, pleural effusion on x-ray, necessitating inpatient management. Received Tamiflu and broad-spectrum antibiotics in the ER. Cultures pending. Continues to require inpatient management due to acute illness posing life-threatening risk given his medical complexity. Diuresing well. Will have pulmonology see patient in the morning. Problems addressed as follows: Multifocal pneumonia Influenza A Pleural effusion -Per my review of chest CT has patchy multifocal pneumonia on the right side, progressing moderately sized effusion on the left, positive for flu A on PCR from 11/23. -Patient desats with any exertion. Goal saturation greater 90%. Currently on 2 to 4 L -Continue Tamiflu 75 mg twice daily, continue vancomycin and ceftriaxone daily for atypical pneumonia and MRSA in the setting of flu along with relative immunocompromisation in the setting of cirrhosis. -Pulmonology consulted to see patient in the morning. Repeat chest x-ray ordered for the morning -Continue Lasix 80 mg IV twice daily and continue home spironolactone 100 mg twice daily for effusion and elevated BNP of 286 -Reports history of lung surgery due to concern for malignancy versus infection. Reports it was an infection. Procedure performed at [facility]. Per my review of records, had decortication performed in 07/2019. VATS and decortication of right side (RUL/RML/RLL) with lymph node sampling and bronchoscopy. Chest tube in place from 07/31 through 08/14. CAD History of PCI with stents x 5 -Unclear history of CHF. Reports stenting 2 to 3 years ago at [facility] in [place]. Awaiting records from [place]. -Continuing Plavix due to unclear history and history of TIPS thrombus. -Blood pressure improved today 117/55. Monitoring closely. Holding on beta-carlos RAMIREZ inhibitor. Seeing response with diuresis Decompensated hepatitis C cirrhosis History of TIPS -Reports last paracentesis in August. Does not appear to have significant fluid at this time on his belly. Will hold on paracentesis at this time. Low concern for SBP -Ammonia elevated at 54. Increase lactulose to 4 times a day for 2-3 soft bowel movements daily -INR 1.17. Platelets 129 -Child Cervantes class B. -Reported history of varices per chart review. No active signs of bleeding. Continue PPI with pantoprazole 40 mg Opiate use disorder: Reports history of Suboxone but does not take it regularly. Will hold at this time as he has not had a dose in 2 to 3 days and denies any withdrawal symptoms. Denies any withdrawal symptoms. Not requesting Suboxone at this time. Anxiety: Reports he gets anxious when he is in the hospital. Initiated on Ativan 0.5 mg twice daily. Patient requested to have it as frequent as every 4 hours, as he is resting comfortably and his vitals are stable and does not look overtly anxious, informed him I would not increase the frequency at this time. Monitor for toxicity. Cardiac diet Full code
[2024-11-25] MEDS: CEFTRIAXONE 1 GM 1 GM in 0.9 % SODIUM CHLORIDE 50 ML IV (08:32)
[2024-11-25] MEDS: SPIRONOLACTONE 25MG TABLET 100 MG PO ×2 (08:32→16:10)
[2024-11-25] MEDS: FLUOXETINE 20MG CAPSULE 20 MG PO (08:32)
[2024-11-25] MEDS: OSELTAMIVIR 75MG CAPSULE 75 MG PO ×2 (08:32→21:18)
[2024-11-25] MEDS: LACTULOSE 20GM/30ML UDC 20 GM PO ×4 (08:32→21:18)
[2024-11-25] MEDS: CLOPIDOGREL 75MG TAB 75 MG PO (08:32)
[2024-11-25 08:44] LABS: Basophils % 0.5 % (0.1-2.0); Eosinophils % 0.8 % (0.1-12.0); Hematocrit 41.7 % (42.0-52.0); Hemoglobin 14.4 g/dL (14.1-18.0); Lymphocytes # 0.8 K/mm3 (0.7-4.5); Lymphocytes % 20.8 % (10-50); Mean Corpuscular HGB Conc 34.5 g/dL (31.8-35.4); Mean Corpuscular Hemoglobin 30.3 pg (27.0-31.2); Mean Corpuscular Volume 87.8 fl (80-94); Mean Platelet Volume 11.9 fl (7.4-10.4); Monocytes # 0.5 K/mm3 (0.1-1.0); Monocytes % 11.9 % (1.7-9.3); Neutrophils # 2.6 K/mm3 (1.8-7.8); Neutrophils % 65.5 % (37.0-80.0); Platelet Count 129 K/mm3 (142-424); Red Blood Count 4.75 M/mm3 (4.60-6.20); Red Cell Distribution Width 13.7 % (11.5-17.5)
[2024-11-25 08:51] LABS: Albumin Level 3.3 g/dl (3.5-5.0); Chloride 97 mmol/L (98-107); Potassium 3.4 mmoL/L (3.5-5.1); Sodium 133 mmol/L (136-145)
[2024-11-25 08:53] LABS: Ammonia 54 umol/L (9-30); Blood Urea Nitrogen 10 mg/dl (9-20); Creatinine Clearance Estimated 198 mL/min (50-200); Estimated Glomerular Filt Rate 141 ml/min (>60); GFR (African American) 171 ML/MIN (>60)
[2024-11-25 08:54] LABS: Alanine Aminotransferase 24 U/L (12-78); Alkaline Phosphatase 204 U/L (38-126); Anion Gap 9.4 mEq/L (5-15); Aspartate Amino Transferase 62 U/L (17-59); Bilirubin,Total 1.6 mg/dl (0.2-1.3); Calcium 7.5 mg/dl (8.4-10.2); Carbon Dioxide 30 mmol/L (22.0-30.0); Globulin 3.3 g/dL (1.3-3.2); Glucose 92 mg/dl (74-100); Magnesium 1.9 mg/dl (1.6-2.3); Total Protein,Serum 6.6 g/dl (6.3-8.2)
[2024-11-25 09:47] LABS: Troponin I < 0.01 ng/ml (0.00-0.034)
[2024-11-25] MEDS: PHA TO NURSING INSTRUCTION 1 EACH NOTAPPLIC (13:00)
[2024-11-25 13:42] LABS: Vancomycin,Trough 15.5 ug/mL (5.0-10.0)
[2024-11-25 18:56] LABS: Vancomycin,Peak 26.2 ug/ml (11-39)
[2024-11-25] MEDS: PANTOPRAZOLE 40MG TABLET 40 MG PO (21:18)
[2024-11-26] VITALS: BP 110/70; PULSE 75; RESP 20; TEMP 36.9; O2SAT 90
--- NOTE | 2024-11-26 | US_ITS ---
FINAL REPORT CLINICAL HISTORY: POST TIPS-- CIRRHOSIS FINDINGS: Sonographic images of the right upper quadrant were obtained. The liver has a cirrhotic appearance. A tip stent is noted with limited flow. Intrastent stenosis not excluded. Portal vein is patent. There is moderate perihepatic ascites. There is no biliary ductal dilatation. Right kidney is normal. IMPRESSION: Cirrhotic appearing liver. Moderate perihepatic ascites. Limited flow within the TIPS stent. Intrastent stenosis not excluded. Reviewed, Interpreted and Dictated by Fartun Simmons MD Transcribed by Adina Coronel Authenticated and [facility]
[2024-11-26 00:09] VITALS: PULSE 77
[2024-11-26 00:10] VITALS: PULSE 75
[2024-11-26] MEDS: LORazepam 0.5MG TABLET 0.5 MG PO (01:39)
[2024-11-26 04:00] VITALS: BMI 28.5
[2024-11-26 04:51] LABS: Basophils % 0.7 % (0.1-2.0); Eosinophils # 0.1 K/mm3 (0.0-0.4); Eosinophils % 2.3 % (0.1-12.0); Hematocrit 40.4 % (42.0-52.0); Hemoglobin 13.9 g/dL (14.1-18.0); Lymphocytes # 0.9 K/mm3 (0.7-4.5); Lymphocytes % 19.6 % (10-50); Mean Corpuscular HGB Conc 34.4 g/dL (31.8-35.4); Mean Corpuscular Hemoglobin 29.8 pg (27.0-31.2); Mean Corpuscular Volume 86.5 fl (80-94); Mean Platelet Volume 11.5 fl (7.4-10.4); Monocytes # 0.6 K/mm3 (0.1-1.0); Neutrophils # 2.8 K/mm3 (1.8-7.8); Neutrophils % 63.2 % (37.0-80.0); Platelet Count 121 K/mm3 (142-424); Red Blood Count 4.67 M/mm3 (4.60-6.20); Red Cell Distribution Width 13.4 % (11.5-17.5); White Blood Count 4.4 K/mm3 (4.8-10.8)
[2024-11-26 04:58] LABS: INR 1.13 (0.9-1.1); Prothrombin Time 12.3 seconds (9.2-12.1)
[2024-11-26 05:04] LABS: Chloride 98 mmol/L (98-107)
[2024-11-26 05:05] LABS: Potassium 3.1 mmoL/L (3.5-5.1); Sodium 133 mmol/L (136-145)
[2024-11-26 05:07] LABS: Blood Urea Nitrogen 9 mg/dl (9-20); Creatinine Clearance Estimated 193 mL/min (50-200); Estimated Glomerular Filt Rate 141 ml/min (>60); GFR (African American) 171 ML/MIN (>60)
[2024-11-26 05:08] LABS: Alanine Aminotransferase 21 U/L (12-78); Alkaline Phosphatase 199 U/L (38-126); Anion Gap 6.1 mEq/L (5-15); Aspartate Amino Transferase 41 U/L (17-59); Bilirubin,Total 1.4 mg/dl (0.2-1.3); Calcium 7.7 mg/dl (8.4-10.2); Carbon Dioxide 32 mmol/L (22.0-30.0); Glucose 88 mg/dl (74-100); Magnesium 1.8 mg/dl (1.6-2.3)
--- NOTE | 2024-11-26 05:29 | PC.NURSE ---
Pt remains on 4LNC and is sating 91-94%, Lung sounds remain diminished. Pt has rested well this shift and denies pain. Pt has c/o anxiety and was treated per DEC.
[2024-11-26 05:38] LABS: Procalcitonin 0.138 ng/mL (0.0-2.0)
--- NOTE | 2024-11-26 06:00 | XR_ITS ---
FINAL REPORT CLINICAL HISTORY: effusion eval, pneumonia COMPARISON: CTA of the chest 11/24/2024 FINDINGS: There is airspace disease in the left base consistent with pneumonia. A moderate-sized effusion is present, slightly worse than seen on the prior CTA of the chest. No significant right-sided effusion is noted. Chronic changes are present in the right lung base. Mediastinum is unremarkable. Heart size is normal. IMPRESSION: Mild progression of the left pleural effusion since the CTA of the chest 11/24/2024. Reviewed, Interpreted and Dictated by Fartun Simmons MD Transcribed by Tasia Magdaleno Authenticated and . [facility]
--- NOTE | 2024-11-26 06:00 | CA_ITS ---
APPROVED REPORT EXAM: Limited 2D Echocardiogram with contrast Paramedic Supervisor: Shilpa Barrera RDCS Ht: 6 ft 0 in Wt: 211lbs BSA: 2.18 BP: 150/82 mmHg Indications: EVAL CHF POOR ACOUSTIC WINDOWS IN ALL VIEWS UNREADALBLE STUDY Echo Enhancing Agent Indication: Endocardial border delineation Agent(s) / Amount(s) Used: Definity 2 cc Other Information Study Quality: Technically Difficult. Technically limited study due to poor endocardial definition. Conclusion This is a limited TTE due to technically very difficult study and inability to visualize the cardiac structures. Limited windows are obtained. Technically difficult study. Ultrasound enhancing agent is administered to better delineate the endocardial borders and estimate LV systolic function. The left ventricle is normal in size. There is normal LV wall thickness. There is normal global LV systolic function. The septum is asynchronous. No regional wall motion abnormalities are noted. LVEF is 60%. No evidence of apical LV thrombus following administration of ultrasound enhancing agent. Grossly, the right ventricle also appears normal in size and function. The atria are not well-visualized, but grossly appear normal in size. The valves are not well evaluated due to technically difficult study. Grossly, however, the MV and TV appear to open well. No evidence of pericardial effusion in the available images. Electronically signed by : Britany Heredia MD 11/26/2024 12:55:27
[2024-11-26] MEDS: VANCOMYCIN/WATER FOR INJ (PEG) 1.75 GM/350 ML PIGGYBACK IV (06:18)
[2024-11-26 06:26] VITALS: PULSE 64; PULSE 66; O2SAT 94
[2024-11-26] MEDS: IPRATROPIUM/ALBUTEROL 3 ML NEB IH (06:26)
[2024-11-26 08:00] VITALS: BP 135/73; PULSE 70; RESP 20; TEMP 36.8; O2SAT 95
[2024-11-26] MEDS: CLOPIDOGREL 75MG TAB 75 MG PO (08:55)
[2024-11-26] MEDS: FLUOXETINE 20MG CAPSULE 20 MG PO (08:55)
[2024-11-26] MEDS: OSELTAMIVIR 75MG CAPSULE 75 MG PO (08:55)
[2024-11-26] MEDS: CEFTRIAXONE 1 GM 1 GM in 0.9 % SODIUM CHLORIDE 50 ML IV (08:56)
[2024-11-26] MEDS: FUROSEMIDE 100MG/10ML VIAL 80 MG IV (08:56)
[2024-11-26] MEDS: SPIRONOLACTONE 25MG TABLET 100 MG PO (08:56)
[2024-11-26] MEDS: LACTULOSE 20GM/30ML UDC 20 GM PO (08:57)
--- NOTE | 2024-11-26 09:23 | P.CONS_ITS ---
History of Present Illness History of present illness: Mr. Pete is a 54-year-old male with reported history of greater than [id number] smoking, decompensated cirrhosis secondary to hepatitis C status post TIPS 2022, CAD status post stenting presented to the ER with worsening respiratory distress and pulmonary was called for further evaluation and management. Patient recently presented to the ER with worsening respiratory send diagnosed with influenza pneumonia and discharged home on Tamiflu presented back with worsening respiratory distress. [facility] Disclaimer: The information contained in this section may have been updated after the patient was seen, as this information can be updated by other users. Medical History (Updated 11/26/24 @ 14:03 by Eric Taylor MD) Opioid use disorder CAD (coronary artery disease), [place] coronary artery Decompensated cirrhosis related to hepatitis C virus (HCV) Cirrhosis HTN (hypertension) Surgical History (Updated 11/24/24 @ 13:08 by Elise Mary RN) History of lung surgery History of coronary artery stent placement History of transjugular intrahepatic portosystemic shunt Family History (Updated 11/24/24 @ 13:10 by Elise Mary RN) Other Family history of cirrhosis of liver Family history of diabetes mellitus type II Social History (Updated 11/24/24 @ 13:09 by Elise Mary RN) Smoking Status: Current every day smoker tobacco type: cigarettes packs per day: 1 alcohol intake: former substance use type: denies use current occupational status: unemployed Travel in the last 8 weeks: None Review of Systems Constitutional Constitutional: Reports anorexia, Reports body ache(s) and Reports fatigue Eyes Eyes: Denies eye discharge, Denies dry eyes, Denies irritation and Denies itchy eyes ENT Ears, Nose, Mouth, and Throat: Denies epistaxis, Denies facial pain, Denies lip swelling and Denies throat swelling *Cardiovascular Cardiovascular: Reports dyspnea, Reports dyspnea on exertion, Reports leg edema and Reports orthopnea *Respiratory Respiratory: Denies change in phlegm color, Reports chest congestion, Reports cough, Reports dyspnea, Reports dyspnea on exertion, Denies excessive phlegm production and Reports wheezing *Gastrointestinal Gastrointestinal: Denies abdominal pain, Denies belching and Denies cramping *Musculoskeletal Musculoskeletal: Reports back pain, Reports myalgias and Reports other (No small joint swelling or Pain) Psychiatric Psychiatric: Denies homicidal ideation and Denies suicidal ideation Endocrine Endocrine: Reports fatigue and Denies heat intolerance Hematologic/Lymphatic Hematologic/Lymphatic: Denies easy bleeding and Denies lymphadenopathy Allergic/Immunologic Allergic/Immunologic: Denies itchy eyes, Denies lip swelling, Denies throat swelling and Reports wheezing Pulmonology Exam Inpatient Vital signs and Labs for Last 24 Hours: Temp Pulse Resp BP Pulse Ox O2 Del Method O2 Flow Rate 98.3 F 70 20 135/73 95 Nasal Cannula 4 11/26/24 08:00 11/26/24 08:00 11/26/24 08:00 11/26/24 08:00 11/26/24 08:00 11/26/24 08:00 11/26/24 08:00 Laboratory Results - last 24 hr 11/25/24 07:50: Troponin I < 0.01 11/25/24 13:05: Vancomycin Trough 15.5 H 11/25/24 18:11: Vancomycin Peak 26.2 11/26/24 04:40: WBC 4.4 L, RBC 4.67, Hgb 13.9 L, Hct 40.4 L, MCV 86.5, MCH 29.8, MCHC 34.4, RDW 13.4, Plt Count 121 L, MPV 11.5 H, Neut % (Auto) 63.2, Lymph % (Auto) 19.6, [place] % (Auto) 14.0 H, Eos % (Auto) 2.3, Baso % (Auto) 0.7, Neut # (Auto) 2.8, Lymph # (Auto) 0.9, [place] # (Auto) 0.6, Eos # (Auto) 0.1, Baso # (Auto) 0.0, PT 12.3 H, INR 1.13 H, Sodium 133 L, Potassium 3.1 L, Chloride 98, C arbon Dioxide 32 H, Anion Gap 6.1, BUN 9, Creatinine 0.60 L, Estimated Creat Clear 193, Estimated GFR 141, Est GFR ( Amer) 171, Glucose 88, Calcium 7.7 L, Magnesium 1.8, Total Bilirubin 1.4 H, AST 41 D, ALT 21, Alkaline Phosphatase 199 H, Total Protein 6.0 L, Albumin 3.0 L, Globulin 3.0, A lbumin/Globulin Ratio 1.0 L, Procalcitonin 0.138 I & O for Labs for Last 24 Hours: Intake & Output 11/23/24 11/24/24 11/25/24 11/26/24 23:59 23:59 23:59 23:59 Intake Total 120 / 480 960 / 1790 890 / 890 Output Total 2900 / 3050 3100 / 3100 600 / 600 Balance -2780 / -2570 -2140 / -1310 290 / 290 Weight 220 lb 217 lb 1.6 oz 211 lb Microbiology Reports for the Last 24 Hours: Microbiology 11/24/24 11:45 Blood Blood Culture - Preliminary NO GROWTH AFTER 24 HOURS 11/24/24 11:45 Blood Blood Culture - Preliminary NO GROWTH AFTER 24 HOURS Constitutional: Present moderate distress Head: Present normocephalic and atraumatic ENT: Present normal exam, normal oropharynx and mucous membranes moist Neck: Present normal inspection and full ROM Respiratory: Present respiratory distress, diminished air movement and able to speak in complete sentences; Absent rhonchi or wheezes Cardiac: Present S1/S2, Tachycardia and radial pulses present GI: Present soft and distention; Absent tenderness or guarding Skin: Present intact; Absent cyanosis or jaundice Neuro: Present alert, awake and oriented x 3 Extremities: Present normal inspection; Absent clubbing or cyanosis Psychiatric: Present normal affect and cooperative Meds Home Medications and Allergies Home Medications ?Medication ?Instructions ?Recorded ?Confirmed ?Type clopidogrel 75 mg tablet 75 mg PO DAILY 07/03/20 11/24/24 History buprenorphine 8 mg-naloxone 2 mg 1 tab sublingual DAILY 11/24/24 11/24/24 History sublingual tablet furosemide 80 mg tablet 80 mg PO BIDL 30 days #60 tabs 11/26/24 Rx lactulose 10 gram/15 mL oral 15 ml PO BID #3,000 mL 11/26/24 Rx solution levofloxacin 750 mg tablet 750 mg PO DAILY 7 days #7 tabs 11/26/24 Rx oseltamivir 75 mg capsule (Tamiflu) 75 mg PO BID 2 days #4 caps 11/26/24 Rx spironolactone 100 mg tablet 100 mg PO BIDL 30 days #0 tabs 11/26/24 11/24/24 Rx New Prescriptions to Start Prescriptions: furosemide Mikael Carpio lactulose Mikael Carpio levofloxacin Mikael Carpio oseltamivir [Tamiflu] Mikael Carpio Allergies Allergy/AdvReac Type Severity Reaction Status Date / Time No Known Allergies Allergy Verified 07/23/20 14:21 Results Laboratory Findings 11/26/24 04:40 11/26/24 04:40 PT/INR, D-dimer PT 12.3 seconds (9.2-12.1) H 11/26/24 04:40 INR 1.13 (0.9-1.1) H 11/26/24 04:40 D-Dimer 3.72 ug/mL (0.0-0.5) H 11/24/24 09:48 Abnormal lab findings: Abnormal Labs 11/24/24 11/24/24 11/24/24 09:46 09:48 12:35 WBC Hgb Hct 41.7 L Plt Count 119 L MPV 11.7 H [place] % (Auto) PT 12.7 H INR 1.17 H D-Dimer 3.72 H Sodium Potassium 3.3 L Chloride 97 L Carbon Dioxide Creatinine Calcium 7.7 L Magnesium 1.3 L Total Bilirubin AST Alkaline Phosphatase 211 H Ammonia NT-Pro-B Natriuret Pep 286 H Total Protein Albumin 3.3 L Globulin Albumin/Globulin Ratio Vancomycin Trough 11/25/24 11/25/24 11/26/24 07:50 13:05 04:40 WBC 4.0 L D 4.4 L Hgb 13.9 L Hct 41.7 L 40.4 L Plt Count 129 L 121 L MPV 11.9 H 11.5 H [place] % (Auto) 11.9 H 14.0 H PT 12.3 H INR 1.13 H D-Dimer Sodium 133 L 133 L Potassium 3.4 L 3.1 L Chloride 97 L Carbon Dioxide 32 H Creatinine 0.60 L 0.60 L Calcium 7.5 L 7.7 L Magnesium Total Bilirubin 1.6 H 1.4 H AST 62 H D Alkaline Phosphatase 204 H 199 H Ammonia 54 H NT-Pro-B Natriuret Pep Total Protein 6.0 L Albumin 3.3 L 3.0 L Globulin 3.3 H Albumin/Globulin Ratio 1.0 L 1.0 L Vancomycin Trough 15.5 H Assessment and Plan *Assessment and plan (1) Influenza A: Status: Acute Category: Medical Code(s): J10.1 - Influenza due to other identified influenza virus with other respiratory manifestations (2) Pneumonia: Status: Acute Qualifiers: Laterality: right Lung location: lower lobe of lung Category: Medical Code(s): J18.9 - Pneumonia, unspecified organism (3) Pleural effusion: Status: Acute Category: Medical Code(s): J90 - Pleural effusion, not elsewhere classified Plan Mr. Pete is a 54-year-old male with reported history of greater than [id number] smoking, decompensated cirrhosis secondary to hepatitis C status post TIPS 2022, CAD status post stenting presented to the ER with worsening respiratory distress and pulmonary was called for further evaluation and management. Patient recently presented to the ER with worsening respiratory send diagnosed with influenza pneumonia and discharged home on Tamiflu presented back with worsening respiratory distress. CTA upon admission no evidence of pulmonary embolism. Moderate left pleural effusion. Prominent right sided ML> LL airspace disease with bronchial thickening. Ascites noted. Continue to show calcified lymphadenopathy from his granulomatous inflammation as previously shown from his exertional lymph node biopsy. Leukopenia. Respiratory PCR panel positive for influenza pneumonia. Currently receiving vancomycin and ceftriaxone and Tamiflu. Blood cultures no growth 24 hours. On examination no significant wheezing noted. Admits using Symbicort at baseline. Not using oxygen supplementation. On 1 L nasal oxygen supplementation saturating 91%. Plan: Incentive spirometry and flutter valve Change antibiotic levofloxacin to complete a total of 7-day course. Obtain sputum sample prior to discharge Continue Tamiflu for a total of 5 days Initiate Advair 250 inhaler. 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 Uptitrating his diuretic regimen on discharge. Will follow as an outpatient basis. No need for thoracentesis at this point of time. # Thank you for involving pulmonary in this patient care. Will follow the patient in pulmonary clinic 1 to 2 weeks post discharge
[2024-11-26] MEDS: MAGNESIUM SULFATE IN WATER 2 GM/50 ML PIGGYBACK IV (10:01)
[2024-11-26] MEDS: POTASSIUM CHLORIDE 20MEQ TAB 40 MEQ PO ×2 (10:01→12:53)
--- NOTE | 2024-11-26 10:13 | HMH.OTEV ---
OT Inpatient Evaluation Rehab OT IP Evaluation Start: 11/26/24 09:09 Freq: ONCE Status: Active Protocol: Document 11/26/24 10:09 [facility] (Rec: 11/26/24 10:13 [facility] [id number]) Rehab OT IP Assessment Subjective History Pt oriented x 3 on arrival. Pt agreeable to engage in therapy evaluation. Pt admitted on 11/24/24 due to Flu and pleural effesion. History and physical: Mikael Pete is a 54 y .o. male with PMHx notable for decompensated hepatitis C cirrhosis, status post TIPS 2022, CAD status post PCI x 5 stents, umbilical hernia repair status post open repair in 12/2023, history of lung surgery? Who presented to the ER because of worsening shortness of breath and flu symptoms over the past 2 days. This is his third encounter with medical facility in the past 3 days. Was diagnosed yesterday with influenza. Started on Tamiflu and discharged home. Presents with report of dyspnea. O2 saturations above 90 at rest, desats to the high 80s with any movement. Chest imaging obtained showing patchy pneumonia in right lung on chest x-ray. CT shows worsening pleural effusion on left side with patchy airspace disease on right. White count is presently normal at 5 .4. Given patient's significant risk factors, worsening symptoms, failure of outpatient management with doxycycline for 48 hours and Tamiflu for 24 hours, medicine was consulted for admission and further management. Upon arrival to the floor, patient is ill-appearing. Able to answer questions. Reports he used to be a drinker. Does not anymore. Previous IV drug use history. Confirms history of conditions as obtained per my review of patient's chart via [employer] from [employer], he has extensive past medical history of substance use, hepatitis C, decompensated cirrhosis, TIPS, CAD with 5 stents, esophageal varices, use order on maintenance medication with buprenorphine, depression, history of portal vein thrombosis. Stable on room air and able to complete sentences on interview. Fatigued on exam and ill- appearing Subjective I feel much better I am ready to leave. Prior to being in the hospital , pt lived at home with sister . Pt claims he is normally independent with all ADLs and IADLs. He does not require any type of AE during functional transfers. Pt no longer works. Objective Patient Orientation Person,Place,Birthday Right Upper Extremity Gross ROM WFL Left Upper Extremity Gross ROM WFL Bed Mobility bed mobility-scooting,bed mobility - supine/sit Assist Level Supervision/Stand by Transfer Training Sit/Stand Transfer Assist Level Supervision/Stand by Lower Body Dressing Ability Standby Assistance Performing Toilet Hygiene Ability Standby Assistance Overall Commode/Toilet Transfer Ability Standby Assistance Commode/Toilet Transfer Technique Sit to/from Ambulatory Rehab OT IP prob,goals,plan Problems Date of Evaluation: 11/26/24 Rehab Potential Rehab Potential Innapropriate for Skilled Therapy Discharge Plan OT Discharge Plan Pt appears to be at his baseline with functional transfers and ADL independence . Pt can return home once he is medically stable per physician. Eval Complexity Eval Charge Codes 78742 - Low Complexity PHYSICIAN CERTIFICATION: I certify the specified therapy services for Mikael Bailey Juan R are required, authorized, and reviewed every 30 days.
--- NOTE | 2024-11-26 10:41 | P.DS_ITS ---
General Admission date:: 11/24/24 Discharge date: 11/26/24 HPI HPI HPI: Mikael Pete is a 54 y.o. male with PMHx notable for decompensated hepatitis C cirrhosis, status post TIPS 2022, CAD status post PCI x 5 stents, umbilical hernia repair status post open repair in 12/2023, history of lung surgery? Who presented to the ER because of worsening shortness of breath and flu symptoms over the past 2 days. This is his third encounter with medical facility in the past 3 days. Was diagnosed yesterday with influenza. Started on Tamiflu and discharged home. Presents with report of dyspnea. O2 saturati ons above 90 at rest, desats to the high 80s with any movement. Chest imaging obtained showing patchy pneumonia in right lung on chest x-ray. CT shows worsening pleural effusion on left side with patchy airspace disease on right. White count is presently normal at 5.4. Given patient's significant risk factors, worsening symptoms, failure of outpatient management with doxycycline for 48 hours and Tamiflu for 24 hours, medicine was consulted for admission and further management. Upon arrival to the floor, patient is ill-appearing. Able to answer questions. Reports he used to be a drinker. Does not anymore. Previous IV drug use history. Confirms history of conditions as obtained per my review of patient's chart via [employer] from [employer], he has extensive past medical history of substance use, hepatitis C, decompensated cirrhosis, TIPS, CAD with 5 stents, esophageal varices, use order on maintenance medication with buprenorphine, depression, history of portal vein thrombosis. Stable on room air and able to complete sentences on interview. Fatigued on exam and ill-appearing Hospital Course Hospital Course Hospital Course: 54-year-old male with significant past medical history of decompensated hepatitis C cirrhosis, status post TIPS, history of PCI x 5, opioid use disorder, hypertension, depression. Presents with worsening shortness of breath. Found to have worsening pneumonia and pleural effusion secondary to flu. Discussed case with ER physician, request admission for further management due to failure of outpatient treatment. I agreed to admit for further care. PSI/port score of 93, class IV risk due to pneumonia, age, male, liver disease, CHF history, pleural effusion on x-ray, necessitating inpatient management. Received Tamiflu and broad-spectrum antibiotics in the ER. Cultures pending. Continues to require inpatient management due to acute illness posing life- threatening risk given his medical complexity. Diuresed well. Pulmonology evaluated patient. Recommend transitioning to Levaquin to complete 7 days of antibiotics. Has diuresed well and improved on his oxygen requirement. Stable to discharge home with further management as an outpatient. Problems addressed as follows: Multifocal pneumonia Influenza A Pleural effusion -Per my review of chest CT has patchy multifocal pneumonia on the right side, progressing moderately sized effusion on the left, positive for flu A on PCR from 11/23. Patient was having desaturation with exertion. Necessitating 4 L initially for goal sats greater 90%. Weaned to 2 L by day of discharge. Initiated on Tamiflu and broad-spectrum antibiotics. Pulmonology was consulted, recommended transitioning to Levaquin to complete 7 days total of therapy. Initiated on aggressive diuresis due to concern for effusion and volume overload. Effusion likely related to ascites and his cirrhosis. No plan to perform thoracentesis at this time. Continue diuretics at discharge. Will continue Lasix 80 mg twice daily and spironolactone 100 mg twice daily. Complete 5 days total of Tamiflu with 75 mg twice daily. Given his clinical improvement. Will discharge home with continued oxygen. --Reports history of lung surgery due to concern for malignancy versus infection. Reports it was an infection. Procedure performed at [facility]. Per my review of records, had decortication performed in 07/2019. VATS and decortication of right side (RUL/RML/RLL) with lymph node sampling and bronchoscopy. Chest tube in place from 07/31 through 08/14. -Negative approximately 5 L during admission with aggressive diuresis. CAD History of PCI with stents x 5 -Unclear history of CHF. Reports stenting 2 to 3 years ago at [facility] in [place]. Opted to obtain records, not received prior to discharge. Limited echo obtained due to technical difficulty. EF preserved at 60%. No pericardial effusion. Grossly normal right sided function. Continuing Plavix due to unclear history and history of TIPS thrombus. Blood pressure remained well controlled after diuresis, 135/73 on day of discharge. Decompensated hepatitis C cirrhosis History of TIPS -Reports last paracentesis in August. Does not appear to have significant fluid at this time on his belly. Will hold on paracentesis at this time. Low concern for SBP. Improving with diuresis. Ammonia was elevated at 54. Initiated on lactulose. Improve mentation on morning of discharge. INR acceptable at 1.13. Platelets 124. Child Cervantes class B. Continue lactulose at discharge to improve mentation and control ammonia level. Reported history of varices per chart review. No active signs of bleeding. Continue PPI with pantoprazole 40 mg Opiate use disorder: Reports history of Suboxone but does not take it regularly. Held during admission as he does not take it regularly. No signs of withdrawal. Not requesting Suboxone during admission. Patient was requesting Ativan due to anxiety. Anxiety: Reports he gets anxious when he is in the hospital. Initiated on Ativan 0.5 mg twice daily. Patient requested to have it as frequent as every 4 hours, as he is resting comfortably and his vitals are stable and does not look overtly anxious, informed him I would not increase the frequency at this time. No signs of toxicity. Discontinued at discharge. Room air saturation at rest of 87%. Necessitating continuous oxygen at 2 L via nasal cannula Total time spent on discharge 33 minutes in counseling, documentation, chart review, and direct care with patient. Exam Data for Last 24 hours Vital signs and Labs for Last 24 Hours: Temp Pulse Resp BP Pulse Ox O2 Del Method O2 Flow Rate 98.3 F 70 20 135/73 95 Nasal Cannula 4 11/26/24 08:00 11/26/24 08:00 11/26/24 08:00 11/26/24 08:00 11/26/24 08:00 11/26/24 09:00 11/26/24 09:00 Laboratory Results - last 24 hr 11/25/24 13:05: Vancomycin Trough 15.5 H 11/25/24 18:11: Vancomycin Peak 26.2 11/26/24 04:40: WBC 4.4 L, RBC 4.67, Hgb 13.9 L, Hct 40.4 L, MCV 86.5, MCH 29.8, MCHC 34.4, RDW 13.4, Plt Count 121 L, MPV 11.5 H, Neut % (Auto) 63.2, Lymph % (Auto) 19.6, [place] % (Auto) 14.0 H, Eos % (Auto) 2.3, Baso % (Auto) 0.7, Neut # (Auto) 2.8, Lymph # (Auto) 0.9, [place] # (Auto) 0.6, Eos # (Auto) 0.1, Baso # (Auto) 0.0, PT 12.3 H, INR 1.13 H, Sodium 133 L, Potassium 3.1 L, Chloride 98, Carbon Dioxide 32 H, Anion Gap 6.1, BUN 9, Creatinine 0.60 L, Estimated Creat Clear 193, Estimated GFR 141, Est GFR ( Amer) 171, Glucose 88, Calcium 7.7 L, Magnesium 1.8, Total Bilirubin 1.4 H, AST 41 D, ALT 21, Alkaline Phosphatase 199 H, Total Protein 6.0 L, Albumin 3.0 L, Globulin 3.0, Albumin/Globulin Ratio 1.0 L, Procalcitonin 0.138 I & O for Last 24 hours: Intake & Output 11/23/24 11/24/24 11/25/24 11/26/24 23:59 23:59 23:59 23:59 Intake Total 120 / 480 960 / 1790 890 / 890 Output Total 2900 / 3050 3100 / 3100 1800 / 1800 Balance -2780 / -2570 -2140 / -1310 -910 / -910 Weight 99.79 kg 98.475 kg 95.708 kg Microbiology Reports for the Last 24 Hours: Microbiology 11/24/24 11:45 Blood Blood Culture - Preliminary NO GROWTH AFTER 24 HOURS 11/24/24 11:45 Blood Blood Culture - Preliminary NO GROWTH AFTER 24 HOURS Constitutional Constitutional: no acute distress, average body habitus, chronically ill appearing, disheveled and cooperative *Routine HEENT Exam Head: Present normocephalic Eye: Present EOMI and PERRL ENT: Present mucous membranes moist Comments: edentulous *Routine Neck Exam Neck: Present supple; Absent lymphadenopathy *Routine Respiratory Exam Respiratory: Present prolonged expiratory phase, wheezes (faint end expiratory) and crackles (minimal in bases); Absent accessory muscle use or rhonchi *Routine Cardiovascular Exam Cardiovascular: Present RRR *Routine Abdominal Exam Abdominal: Present soft, normoactive bowel sounds and distended; Absent tenderness *Routine Rectal Exam Patient deferred: visual exam *Routine Exam Patient deferred: penile exam *Routine Extremities Exam Extremities: Absent cyanosis, clubbing or edema *Routine Skin Exam Skin: Present intact and warm; Absent rash *Routine Neurological Exam Neurological: Present alert, oriented X3 and moving all extremities; Absent altered mental status Comments: improved mentation, A&O x 4 Results Data Completed and Pending Labs on day of discharge: Labs from last 24 hours 11/26/24 11/25/24 11/25/24 04:40 18:11 13:05 WBC 4.4 L RBC 4.67 Hgb 13.9 L Hct 40.4 L MCV 86.5 MCH 29.8 MCHC 34.4 RDW 13.4 Plt Count 121 L MPV 11.5 H Neut % (Auto) 63.2 Lymph % (Auto) 19.6 [place] % (Auto) 14.0 H Eos % (Auto) 2.3 Baso % (Auto) 0.7 Neut # (Auto) 2.8 Lymph # (Auto) 0.9 [place] # (Auto) 0.6 Eos # (Auto) 0.1 Baso # (Auto) 0.0 PT 12.3 H INR 1.13 H Sodium 133 L Potassium 3.1 L Chloride 98 Carbon Dioxide 32 H Anion Gap 6.1 BUN 9 Creatinine 0.60 L Estimated Creat Clear 193 Estimated GFR 141 Est GFR ( Amer) 171 Glucose 88 Calcium 7.7 L Magnesium 1.8 Total Bilirubin 1.4 H AST 41 D ALT 21 Alkaline Phosphatase 199 H Total Protein 6.0 L Albumin 3.0 L Globulin 3.0 Albumin/Globulin Ratio 1.0 L Procalcitonin 0.138 Vancomycin Peak 26.2 Vancomycin Trough 15.5 H Preliminary micro results at discharge 11/24/24 11:45 Blood Culture - Preliminary Blood NO GROWTH AFTER 24 HOURS 11/24/24 11:45 Blood Culture - Preliminary Blood NO GROWTH AFTER 24 HOURS DS: Diagnosis Discharge Diagnosis (1) Pneumonia: Status: Acute Code(s): J18.9 - Pneumonia, unspecified organism (2) Influenza A: Status: Acute Code(s): J10.1 - Influenza due to other identified influenza virus with other respiratory manifestations (3) Pleural effusion: Status: Acute Code(s): J90 - Pleural effusion, not elsewhere classified (4) Hypomagnesemia: Status: Acute Code(s): E83.42 - Hypomagnesemia (5) Decompensated cirrhosis related to hepatitis C virus (HCV): Status: Acute Code(s): B19.20 - Unspecified viral hepatitis C without hepatic coma; K74.69 - Other cirrhosis of liver (6) History of transjugular intrahepatic portosystemic shunt: Status: Acute Code(s): Z98.890 - Other specified postprocedural states (7) CAD (coronary artery disease), [place] coronary artery: Status: Acute Code(s): I25.10 - Atherosclerotic heart disease of [place] coronary artery without angina pectoris (8) History of coronary artery stent placement: Status: Acute Code(s): Z95.5 - Presence of coronary angioplasty implant and graft (9) Opioid use disorder: Status: Acute Code(s): F11.90 - Opioid use, unspecified, uncomplicated Meds Home Medications and Allergies Home Medications ?Medication ?Instructions ?Recorded ?Confirmed ?Type clopidogrel 75 mg tablet 75 mg PO DAILY 07/03/20 11/24/24 History buprenorphine 8 mg-naloxone 2 mg 1 tab sublingual DAILY 11/24/24 11/24/24 History sublingual tablet furosemide 80 mg tablet 80 mg PO BIDL 30 days #60 tabs 11/26/24 Rx lactulose 10 gram/15 mL oral 15 ml PO BID #3,000 mL 11/26/24 Rx solution levofloxacin 750 mg tablet 750 mg PO DAILY 7 days #7 tabs 11/26/24 Rx oseltamivir 75 mg capsule (Tamiflu) 75 mg PO BID 2 days #4 caps 11/26/24 Rx spironolactone 100 mg tablet 100 mg PO BIDL 30 days #0 tabs 11/26/24 11/24/24 Rx New Prescriptions to Start Prescriptions: furosemide Mikael Carpio lactulose Mikael Carpio levofloxacin Mikael Carpio oseltamivir [Tamiflu] Mikael Carpio Allergies Allergy/AdvReac Type Severity Reaction Status Date / Time No Known Allergies Allergy Verified 07/23/20 14:21 Discharge Plan Disposition Patient Disposition: Home, Self-Care Condition: Fair Discharge Order Discharge Orders: Discharge Order (Routine); Ordered 11/26/24 Ordered By: Mikael Carpio Follow up Plan Follow up with: Ping Alcantara APRN [Primary Care Provider] - 12/04/24 11:00 am (mat appointment with ping 12/03/24 at 10:45) Eric Taylor MD [Physician] - 12/25/24 1:00 pm Prescriptions/Medication Reconciliation: New oseltamivir [Tamiflu] 75 mg Capsule 75 mg PO BID 2 Days Qty: 4 0RF levofloxacin 750 mg tablet 750 mg PO DAILY 7 Days Qty: 7 0RF lactulose 10 gram/15 mL solution 15 ml PO BID Qty: 3000 0RF Continued clopidogrel 75 mg tablet 75 mg PO DAILY buprenorphine-naloxone 8-2 mg tablet, sublingual 1 tab sublingual DAILY Patient Comments: dissolve ONE tablet by MOUTH UNDER THE TONGUE ONCE daily Changed spironolactone 100 mg tablet 100 mg PO BIDL 30 Days Qty: 0 0RF Patient Comments: TAKE ONE TABLET BY MOUTH TWICE DAILY DIRECTED furosemide 80 mg tablet 80 mg PO BIDL 30 Days Qty: 60 0RF Patient Comments: TAKE ONE TABLET BY MOUTH ONCE DAILY Discontinued doxycycline hyclate 100 mg capsule 100 mg PO BID Patient Comments: TAKE ONE CAPSULE BY MOUTH EVERY TWELVE HOURS prednisone 20 mg tablet 60 mg PO DAILY Patient Comments: TAKE THREE TABLETS BY MOUTH EVERY DAY FOR 5 DAYS Other Ambulatory Orders: Home Medical Equipment (Routine) Location: None Selected Ordered By: Mikael Carpio Problem Reconciliation Problems Reviewed?: Yes Patient Discharge Instructions ACTIVITY: Continue current activity DIET: continue same diet Patient Instructions: DI for Pneumonia -- Adult, DI for Influenza -- Adult, DI for Pleural Effusion Print Language: Irish Providers Primary Care Provider: Ping Alcantara Admit Provider: Mikael Carpio Attending Provider: Mikael Carpio
--- NOTE | 2024-11-26 10:42 | PC.NURSE ---
Pt RA sat 87%, pt put on 2L NC and remains in low 90's.
[2024-11-26] MEDS: DEFINITY US ECHO CONTRAST 2ML INJ 2 MG IV (12:04)
--- NOTE | 2024-11-26 12:36 | HMH.PTEV ---
Physical Therapy Evaluation Rehab PT IP Evaluation Start: 11/26/24 09:09 Freq: ONCE Status: Active Protocol: Document 11/26/24 12:32 [facility] (Rec: 11/26/24 12:36 [facility] [id number]) Subjective/History History History Pt oriented x 3 on arrival. Pt agreeable to engage in therapy evaluation. Pt admitted on 11/24/24 due to Flu and pleural effesion. History and physical: Mikael Pete is a 54 y .o. male with PMHx notable for decompensated hepatitis C cirrhosis, status post TIPS 2022, CAD status post PCI x 5 stents, umbilical hernia repair status post open repair in 12/2023, history of lung surgery? Who presented to the ER because of worsening shortness of breath and flu symptoms over the past 2 days. This is his third encounter with medical facility in the past 3 days. Was diagnosed yesterday with influenza. Started on Tamiflu and discharged home. Presents with report of dyspnea. O2 saturations above 90 at rest, desats to the high 80s with any movement. Chest imaging obtained showing patchy pneumonia in right lung on chest x-ray. CT shows worsening pleural effusion on left side with patchy airspace disease on right. White count is presently normal at 5 .4. Given patient's significant risk factors, worsening symptoms, failure of outpatient management with doxycycline for 48 hours and Tamiflu for 24 hours, medicine was consulted for admission and further management. Upon arrival to the floor, patient is ill-appearing. Able to answer questions. Reports he used to be a drinker. Does not anymore. Previous IV drug use history. Confirms history of conditions as obtained per my review of patient's chart via [employer] from [employer], he has extensive past medical history of substance use, hepatitis C, decompensated cirrhosis, TIPS, CAD with 5 stents, esophageal varices, use order on maintenance medication with buprenorphine, depression, history of portal vein thrombosis. Stable on room air and able to complete sentences on interview. Fatigued on exam and ill- appearing Subjective Subjective Pt agreeable to PT evaluation. He reports that he lives at home in 1 story home with no stairs. He reports that prior to admission to the hospital, he was completely independent. Denies falls. He reports that he continues to drive and he does not utilize an assistive device currently. New diagnosis of cancer in past 12 No months? Rehab PT IP Eval Objective Appearance Patient Behavior Appropriate,Patient Baseline Patient Orientation Person,Place,Time Difficulty following instructions none Speech Pattern Patient Baseline Ambulation Patient Able to Ambulate Yes Ambulation Observation IP General Gait Pattern Observation No Deviations/Normal Ambulation Distance (feet) 25 Ambulation Assistive Device None Ambulation Ability Supervision/Stand by Balance Ability to Arise Able, w/o using arms Sitting Balance Steady, safe Standing Balance Narrow stance w/o support Dynamic Sitting Balance Ability Normal Dynamic Standing Balance Ability Normal Transfers Bed Transfer Ability Independent Chair Transfer Ability Independent Sit to Stand Bed Transfer Ability Independent Sit to Stand Chair Transfer Ability Independent Rehab PT IP prob,goals,plan Problems Date of Evaluation: 11/26/24 Discharge Plan PT Discharge Plan PT is recommending discharge to home when deemed medically stable. Skilled PT is not indicated for this pt during his acute stay. Eval Complexity Eval Charge Codes 72921 - Low Complexity PHYSICIAN CERTIFICATION: I certify the specified therapy services for Mikael Pete are required, authorized, and reviewed every 30 days.
--- NOTE | 2024-11-28 10:36 | SW/DCPLANNER ---
Phoned patient x2. Each time patient's phone states that the caller your trying to reach is unavaible or no longer in service. Was unable to leave message. Yocasta MARINELLI Aged Or Disabled Care Worker
== END 2024-11-26 12:55 | disposition home or self-care (01) | DRG 194 ==
LOC: ER 11:48 → 2ND 11:56
PROVIDERS: Admitting Provider Internal Medicine Adolescent Medicine; Emergency Provider Emergency Medicine; PCP Nurse Practitioner; Visit Provider Internal Medicine Adolescent Medicine
DX: J10.01 Influenza due to other identified influenza virus with the same other identified influenza virus pneumonia (principal); J91.8 Pleural effusion in other conditions classified elsewhere; F11.11 Opioid abuse, in remission; B19.20 Unspecified viral hepatitis C without hepatic coma; K74.69 Other cirrhosis of liver; I25.10 Atherosclerotic heart disease of native coronary artery without angina pectoris; F17.210 Nicotine dependence, cigarettes, uncomplicated; F41.9 Anxiety disorder, unspecified; Z79.899 Other long term (current) drug therapy; Z95.5 Presence of coronary angioplasty implant and graft
CPT/HCPCS: 36415; 71045; 71046; 71275; 76705; 80053; 80202; 82140; 83735; 83880; 84145; 84484; 85025; 85378; 85610; 87040; 93005; 93306; 94640; 97161; 97165; 99285; J0696; J1940; J3370; J3372; J3475; J7620; Q9957; Q9967